=== PATIENT | female | born 1990 | race Caucasian/White ===

== ENCOUNTER 2017-01-28 11:32 | Emergency (ER) | payer BC, OTHER ==
[2017-01-28 12:44] VITALS: BP 116/75
--- NOTE | 2017-01-28 13:02 | UC ---
Throat Pain/Nasal Jossue HPI - HPI Summary HPI Summary: 3 DAYS OF SINUS CONGESTION, NASAL DRAINAGE, NO FEVERS, THE NEIGHBORS BELOW HERE SMOKE AND SHE GOT A NEW CARPET IN HERE APARTMENT-- - History of Current Complaint Chief Complaint: UCRespiratory Stated Complaint: SINUS COMPLAINT Time Seen by Provider: 01/28/17 12:41 Hx Obtained From: Patient Hx Last Menstrual Period: 01/18/17 ?: No Onset/Duration: Gradual Onset, Lasting Days - 3, Still Present Severity: Mild Pain Intensity: 2 Pain Scale Used: 0-10 Numeric Cough: None Associated Signs & Symptoms: Positive: Nasal Discharge - Allergies/Home Medications Allergies/Adverse Reactions: Allergies Allergy/AdvReac Type Severity Reaction Status Date / Time No Known Allergies Allergy Verified 06/17/16 16:18 Home Medications: Home Medications Sertraline* [Zoloft*] 25 mg PO DAILY 01/28/17 [History Confirmed 01/28/17] PMH/Surg Hx/FS Hx/Imm Hx Previously Healthy: Yes Psychological History: Depression - Surgical History Surgical History: None - Family History Known Family History: Positive: Hypertension - Social History Occupation: Employed Full-time Lives: With Family Alcohol Use: Occasionally Alcohol Amount: 2x weekly Substance Use Type: None Smoking Status (MU): Never Smoked Tobacco - Immunization History Most Recent Influenza Vaccination: none Review of Systems Constitutional: Negative Skin: Negative Eyes: Other - ITCHING ENT: Nasal Discharge Respiratory: Negative Cardiovascular: Negative Gastrointestinal: Negative Genitourinary: Negative Motor: Negative Neurovascular: Negative Musculoskeletal: Negative Neurological: Negative Psychological: Negative All Other Systems Reviewed And Are Negative: Yes Physical Exam Triage Information Reviewed: Yes Appearance: Well-Appearing, No Pain Distress, Well-Nourished Vital Signs: Initial Vital Signs Temp 99.0 F 01/28/17 12:41 Pulse 72 01/28/17 12:41 Resp 16 01/28/17 12:41 BP 116/75 01/28/17 12:41 Pulse Ox 98 01/28/17 12:41 Vital Signs Reviewed: Yes Eye Exam: Normal Eyes: Positive: Conjunctiva Clear ENT Exam: Normal ENT: Positive: Normal ENT inspection, Hearing grossly normal, Pharynx normal, Nasal congestion, Nasal drainage, TMs normal. Negative: Tonsillar swelling, Tonsillar exudate, Trismus, Muffled/hoarse voice Dental Exam: Normal Neck exam: Normal Neck: Positive: Supple, Nontender, No Lymphadenopathy Respiratory Exam: Normal Respiratory: Positive: Chest non-tender, Lungs clear, Normal breath sounds, No respiratory distress, No accessory muscle use Cardiovascular Exam: Normal Cardiovascular: Positive: RRR, No Murmur, Pulses Normal, Brisk Capillary Refill Musculoskeletal Exam: Normal Musculoskeletal: Positive: Strength Intact, ROM Intact, No Edema Neurological Exam: Normal Neurological: Positive: Alert, Muscle Tone Normal Psychological Exam: Normal Skin Exam: Normal Throat Pain/Nasal Course/Dx - Course Assessment/Plan: cHANGE TO A 24 HOURS SECOND GENERATION ANTIHISTAMINE, USE FLONASE DAILY, MAY USE ANTIBIODICS IF SX WORSEN IN 7-9 DAYS OR IF FEVERS OCCUR - Differential Dx/Diagnosis Differential Diagnosis/HQI/PQRI: Pharyngitis, Sinusitis, URI Provider Diagnoses: Allergic Rhinnitis Discharge - Discharge Plan Condition: Stable Disposition: HOME Prescriptions: Azithromycin TAB* [Zithromax TAB (Z-KAELA) 250 mg #6 tabs] 2 tab PO .TODAY, THEN 1 DAILY #1 kaela Patient Education Materials: Allergic Rhinitis (ED), Cetirizine (By mouth), Fluticasone (Into the nose) Referrals: [facility] [place] [facility] [Outside] - If Needed
== END 2017-01-28 13:12 | disposition home or self-care (01) ==
LOC: UCEAST 11:32
DX: J30.9 Allergic rhinitis, unspecified (principal)
CPT/HCPCS: 99212; G0463

== ENCOUNTER 2017-04-02 16:26 | Emergency (ER) | payer BC ==
[2017-04-02 16:39] VITALS: BP 127/90
--- NOTE | 2017-04-02 16:50 | UC ---
Skin Complaint HPI - HPI Summary HPI Summary: got 2 bug bites on left arm near axilla, both are swollen red and itching patient has not seen a tick on her-pt is concerned about LYME - History of Current Complaint Chief Complaint: UCSkin Time Seen by Provider: 04/02/17 16:42 Stated Complaint: RASH-LYME? Hx Obtained From: Patient Hx Last Menstrual Period: one month ago ?: No Onset/Duration: Sudden Onset, Lasting Days - 2, Still Present Timing: Constant Location: Discrete Character: Redness, Raised Aggravating: Touch Alleviating: Nothing Associated Signs & Symptoms: Positive: Negative Related History: Insect Bite/Sting - Allergy/Home Medications Allergies/Adverse Reactions: Allergies Allergy/AdvReac Type Severity Reaction Status Date / Time No Known Allergies Allergy Verified 04/02/17 16:40 Home Medications: Home Medications Fexofenadine HCl [Allergy 24-Hr] 04/02/17 [History Confirmed 04/02/17] Review of Systems Constitutional: Negative Skin: Negative, Other - left upper arm near axilla Eyes: Negative ENT: Negative Respiratory: Negative Cardiovascular: Negative Gastrointestinal: Negative Genitourinary: Negative Motor: Negative Neurovascular: Negative Musculoskeletal: Negative Neurological: Negative Psychological: Negative All Other Systems Reviewed And Are Negative: Yes PMH/Surg Hx/FS Hx/Imm Hx Previously Healthy: Yes - Surgical History Surgical History: None - Family History Known Family History: Positive: Hypertension - Social History Occupation: Employed Full-time Lives: With Family Alcohol Use: Occasionally Alcohol Amount: 2x weekly Substance Use Type: None Smoking Status (MU): Never Smoked Tobacco - Immunization History Most Recent Influenza Vaccination: none Physical Exam Triage Information Reviewed: Yes Appearance: Well-Appearing, No Pain Distress, Well-Nourished Vital Signs: Initial Vital Signs Temp 97.9 F 04/02/17 16:37 Pulse 78 04/02/17 16:37 Resp 12 04/02/17 16:37 BP 127/90 04/02/17 16:37 Pulse Ox 99 04/02/17 16:37 Vital Signs Reviewed: Yes Eye Exam: Normal Eyes: Positive: Conjunctiva Clear ENT Exam: Normal ENT: Positive: Normal ENT inspection, Hearing grossly normal. Negative: Nasal congestion, Nasal drainage, Trismus, Muffled/hoarse voice Dental Exam: Normal Neck exam: Normal Neck: Positive: Supple, Nontender Respiratory Exam: Normal Respiratory: Positive: Chest non-tender, No respiratory distress, No accessory muscle use Cardiovascular Exam: Normal Cardiovascular: Positive: RRR, No Murmur, Pulses Normal, Brisk Capillary Refill Musculoskeletal Exam: Normal Musculoskeletal: Positive: Strength Intact, ROM Intact Neurological Exam: Normal Neurological: Positive: Alert, Muscle Tone Normal Psychological Exam: Normal Skin Exam: Other Skin: Positive: Other - 2 bug bites 25 cent raised area with 1 cm of surrounding erythema Course/Dx - Course Course Of Treatment: benadryl, hydrocortisone cream, cool compress, follow with pcp prn - Differential Diagnoses - Skin Complaint Differential Diagnoses: Cellulitis, Local Allergic Reaction, Poison Cee, Poison Toxey, Urticaria - Diagnoses Provider Diagnoses: local reaction to insect bite Discharge - Discharge Plan Condition: Stable Disposition: HOME Patient Education Materials: Diphenhydramine (By mouth), Hydrocortisone (On the skin), Lyme Disease (ED), Insect Bite or Sting (ED), Tick Bite (ED) Referrals: [facility] [place] [facility] [Outside] - If Needed
== END 2017-04-02 16:54 | disposition home or self-care (01) ==
LOC: UCEAST 16:26
DX: S40.862A Insect bite (nonvenomous) of left upper arm, initial encounter (principal); W57.XXXA Bitten or stung by nonvenomous insect and other nonvenomous arthropods, initial encounter; Y93.9 Activity, unspecified; Y92.9 Unspecified place or not applicable
CPT/HCPCS: 99211; G0463

== ENCOUNTER 2017-06-18 07:22 | Emergency (ER) | payer BC ==
[2017-06-18 07:33] VITALS: BP 144/88
--- NOTE | 2017-06-18 08:28 | UC ---
Anshul Castillo Benjamin, scribed for Kathrin Franco DO on 06/18/17 at 0753 . Ear Complaint HPI - HPI Summary HPI Summary: 27yo female c/o bilateral ear discomfort for about a week. Pt states that her ears feel full. Pt tried ear decongestants and cleaning with q tips, but none helped. Pt denies ant cough, fever, sinus pressure, or hearing problems. She states head position leaning to the side helps. Pt denies smoking. No significant FHx, negative for CAD or DM. Hx of vertigo . - History of Current Complaint Chief Complaint: UCEar Stated Complaint: EAR PAIN Time Seen by Provider: 06/18/17 07:35 Hx Obtained From: Patient Hx Last Menstrual Period: 06/11/17 Onset/Duration: Gradual Onset, Lasting Weeks - 1 week Severity Initially: Mild Severity Currently: Mild Pain Intensity: 0 Pain Scale Used: 0-10 Numeric Alleviating Factors: Other (Noted In Comments) - head position leaning to the sides - Allergies/Home Medications Allergies/Adverse Reactions: Allergies Allergy/AdvReac Type Severity Reaction Status Date / Time No Known Allergies Allergy Verified 06/18/17 07:33 PMH/Surg Hx/FS Hx/Imm Hx Neurological History: Other Other Neurological History: vertigo Psychological History: Anxiety - Surgical History Surgical History: None - Family History Known Family History: Positive: Hypertension Negative: Cardiac Disease, Diabetes - Social History Occupation: Employed Full-time - teacher Lives: With Family Alcohol Use: Occasionally Alcohol Amount: 2x weekly Substance Use Type: None Smoking Status (MU): Never Smoked Tobacco - Immunization History Most Recent Influenza Vaccination: none Review of Systems Constitutional: Negative Skin: Negative Eyes: Negative ENT: Other - ear discomfort Respiratory: Negative Cardiovascular: Negative Gastrointestinal: Negative Genitourinary: Negative Motor: Negative Neurovascular: Negative Musculoskeletal: Negative Neurological: Negative Psychological: Negative All Other Systems Reviewed And Are Negative: Yes Physical Exam Triage Information Reviewed: Yes Appearance: Well-Appearing, No Pain Distress, Well-Nourished Vital Signs: Initial Vital Signs Temp 98.3 F 06/18/17 07:29 Pulse 79 06/18/17 07:29 Resp 19 06/18/17 07:29 BP 144/88 06/18/17 07:29 Pulse Ox 100 06/18/17 07:29 Eye Exam: Normal Eyes: Positive: Conjunctiva Clear ENT: Positive: Normal ENT inspection, Hearing grossly normal, Pharynx normal, TMs normal. Negative: Nasal congestion, Nasal drainage, Tonsillar swelling, Tonsillar exudate, Trismus, Muffled/hoarse voice Neck: Positive: Supple, Nontender Respiratory: Positive: Lungs clear, Normal breath sounds, No respiratory distress, No accessory muscle use Cardiovascular: Positive: RRR, No Murmur Musculoskeletal: Positive: Strength Intact, Other: - severe kyphosis, head forward posture, mandibular deviation with ext Neurological: Positive: Alert, Muscle Tone Normal Psychological: Positive: Age Appropriate Behavior Skin Exam: Normal Ear Complaint Course/Dx - Course Course Of Treatment: Reviewed pts medication and allergy lists. High Blood pressure noted. - Differential Dx/Diagnosis Differential Diagnosis/HQI/PQRI: Cerumen Impaction, Otitis Externa, Otitis Media , TMJ Syndrome, URI Provider Diagnoses: serous otitis, tmj dysfunction Discharge - Discharge Plan Condition: Stable Disposition: HOME Patient Education Materials: Serous Otitis Media (ED) Referrals: Viet Seo MD [Medical Doctor] - 2 Weeks (foollow up in 2 week if not improved.) Raquel Bah MD [Primary Care Provider] - If Needed Additional Instructions: YOU WOULD LIKELY BENEFIT FROM OSTEOPATHIC MANIPULATION. WE RECOMMEND THAT YOU FIND AN OSTEOPATHIC PHYSICIAN IN YOUR AREA WHO DOES LYMPHATIC, MYOFACIAL AND VISCERAL WORK The documentation as recorded by the Anshul gordillo Benjamin accurately reflects the service I personally performed and the decisions made by me, Kathrin Franco DO.
== END 2017-06-18 08:16 | disposition home or self-care (01) ==
LOC: UCEAST 07:22
DX: H66.93 Otitis media, unspecified, bilateral (principal); M26.609 Unspecified temporomandibular joint disorder, unspecified side; Z86.69 Personal history of other diseases of the nervous system and sense organs; Z86.59 Personal history of other mental and behavioral disorders
CPT/HCPCS: 99211; G0463

== ENCOUNTER 2017-07-22 14:54 | Emergency (ER) | payer BC ==
[2017-07-22 15:32] VITALS: BP 114/75
--- NOTE | 2017-07-22 16:05 | UC ---
Ear Complaint HPI - HPI Summary HPI Summary: SINCE 06/15/17 EAR ACHE, SEEN ON 06/16/17 DIAGNOSED WITH OM. LATER FOLLOWED UP WITH ENT. SYMPTOMS BRIEFLY RESOLVED. HOWEVER, OVER THE LAST WEEK, HAS HAD WORSENING BILATERAL EAR PAIN AND FULLNESS. - History of Current Complaint Chief Complaint: UCEar Stated Complaint: EAR PAIN Time Seen by Provider: 07/22/17 15:47 Hx Obtained From: Patient Hx Last Menstrual Period: 06/11/17 Onset/Duration: Gradual Onset, Lasting Weeks, Worse Since - LAST WEEK Severity Initially: Mild Severity Currently: Moderate Alleviating Factors: OTC Meds Associated Signs/Symptoms: Positive: URI Symptoms - Allergies/Home Medications Allergies/Adverse Reactions: Allergies Allergy/AdvReac Type Severity Reaction Status Date / Time No Known Allergies Allergy Verified 06/18/17 07:33 PMH/Surg Hx/FS Hx/Imm Hx Previously Healthy: Yes - Surgical History Surgical History: None - Family History Known Family History: Positive: Hypertension Negative: Cardiac Disease, Diabetes - Social History Occupation: Employed Full-time Lives: With Family Alcohol Use: Occasionally Alcohol Amount: 2x weekly Substance Use Type: None Smoking Status (MU): Never Smoked Tobacco - Immunization History Most Recent Influenza Vaccination: none Review of Systems Constitutional: Negative Skin: Negative Eyes: Negative ENT: Ear Ache Respiratory: Negative Cardiovascular: Negative Gastrointestinal: Negative Genitourinary: Negative Motor: Negative Neurovascular: Negative Musculoskeletal: Negative Neurological: Negative Psychological: Negative Is Patient Immunocompromised?: No All Other Systems Reviewed And Are Negative: Yes Physical Exam Triage Information Reviewed: Yes Appearance: Well-Appearing, No Pain Distress, Well-Nourished Vital Signs: Initial Vital Signs Temp 98.0 F 07/22/17 15:29 Pulse 75 07/22/17 15:29 Resp 18 07/22/17 15:29 BP 114/75 07/22/17 15:29 Pulse Ox 100 07/22/17 15:29 Vital Signs Reviewed: Yes Eye Exam: Normal ENT: Positive: TM bulging, TM dull, TM red - R > L Dental Exam: Normal Neck: Positive: Supple, Nontender, Enlarged Nodes @ - BILATERAL ANTERIOR CERVICAL CHAIN Respiratory Exam: Normal Respiratory: Positive: Chest non-tender, Lungs clear, Normal breath sounds, No respiratory distress, No accessory muscle use Cardiovascular Exam: Normal Cardiovascular: Positive: RRR, No Murmur, Pulses Normal Abdominal Exam: Normal Musculoskeletal Exam: Normal Musculoskeletal: Positive: Strength Intact, ROM Intact Neurological Exam: Normal Psychological Exam: Normal Skin Exam: Normal Ear Complaint Course/Dx - Differential Dx/Diagnosis Differential Diagnosis/HQI/PQRI: Otitis Externa, Otitis Media, URI Provider Diagnoses: BILATERAL OTITIS SEROUS Discharge - Discharge Plan Condition: Stable Disposition: HOME Prescriptions: Amoxicillin/Clavulanate TAB* [Augmentin TAB 875*] 875 mg PO BID #20 tab Fluticasone NASAL SPRAY 50MCG* [Flonase NASAL SPRAY 50MCG*] 2 spray BOTH NARES DAILY #1 btl Patient Education Materials: Serous Otitis Media (ED) Referrals: Raquel Bah MD [Primary Care Provider] -
--- OUTSIDE RECORDS SUMMARY | 2017-07-22 16:13 | XMS REPORT ---
:1990 External Reference #:[id number] Author Organization [facility] Address [address] [place] [address] Phone [phone] Care Team Providers Name Role Phone Raquel Bah M.D. Primary Care Physician Unavailable Payers Type Date Identification Numbers Payment Provider Subscriber Commercial Policy Number: [id number] [facility] Kathrin Tamayo Group Number: [id number] [address] [address] PayID: [id number] [place] [address] Problems Description No Information Family History Date Family Member(s) Problem(s) Comments General Allergies General Diabetes General Heart Attack General Heart Disease General Thyroid Disease Social History Type Date Description Comments Occupation Teacher [employer], special ed, reading and science Cigarette Use Never Smoked Cigarettes Cigars Never Smoked Cigars Pipe Never Smoked A Pipe Smokeless Tobacco Never Used Smokeless Tobacco ETOH Use Currently rarely consumes alcohol Smoking Patient has never smoked Allergies, Adverse Reactions, Alerts Date Description Reaction Status Severity Comments 06/10/2008 NKDA active Medications Medication Date Status Form Strength Qnty SIG Indications Ordering Provider Sertraline HCL Active Tablets 100mg Take One Unknown 000 Tablet By Mouth Every Day Microgestin Active Tablets 1-20mg-mcg Take One Unknown 1/20 000 Tablet By Mouth Every Day as Directed Nac Active Unknown 000 None Hx Unknown 000 - 017 Vital Signs Date Vital Result Comment 06/26/2017 BP Systolic 126 mmHg BP Diastolic 96 mmHg Heart Rate 75 /min Respiratory Rate 17 /min Weight 169.00 lb Weight in kg's 76.658 Height 58 inches 4'10" Height in cm's 147.3 cm BMI (Body Mass Index) 35.3 kg/m2 06/16/2008 BP Systolic 107 mmHg BP Diastolic 58 mmHg Heart Rate 64 /min Respiratory Rate 16 /min Results Description No Information Procedures Date CPT Code Description Status 06/26/2017 89714 Tympanometry Completed 06/16/2008 72733 Videostroboscopy Completed Encounters Type Date Location Provider CPT E/M Dx Office Visit 06/26/2017 9:00a [place],After 08/20/07 Igor Marx 39495 H91.93 Tito Crump Office Visit 06/16/2008 8:30a [place],After 08/20/07 Igor Marx 59611 784.49 Tito Crump 478.5 Plan of Care 06/26/2017 - Igor Crump M.D.H91.93 Unspecified hearing loss, bilateralComments:The patient has felt her ears are plugged up for a couple of weeks. She went to [facility] and was told there is inflammation and possibly fluid. Today her ears are normal without effusion. Her tympanometry is normal today. I don't know why her ears feel so plugged up. It sounds like some eustachian tube obstruction but there is no evidence of that. She will return later for an audiogram. She returnedlater in he day for the audiogram. Her hearing is normal and the tympanometry is type A. The same as what I got. Assuming she had an effusion as she was told, this could be a resolving otitis media. It should continue to get better with time. She can take decongestants and use an intranasal corticosteroid. I will see her again if she does not feel better in 3 to 4 weeks.
== END 2017-07-22 16:05 | disposition home or self-care (01) ==
LOC: UCEAST 14:54
DX: H65.03 Acute serous otitis media, bilateral (principal)
CPT/HCPCS: 99212; G0463

== ENCOUNTER 2017-08-29 19:10 | Emergency (ER) | payer BC ==
--- OUTSIDE RECORDS SUMMARY | 2017-08-29 19:17 | XMS REPORT ---
:1990 External Reference #:[id number] Author Organization [facility] Address [address] [place] [address] Phone [phone] Care Team Providers Name Role Phone Raquel Bah M.D. Primary Care Physician Unavailable Payers Type Date Identification Numbers Payment Provider Subscriber Commercial Policy Number: [id number] [facility] Kathrin Tamayo Group Number: [id number] [address] [address] PayID: [id number] [place] [address] Problems Description No Information Family History Date [...] Form Strength Qnty SIG Indications Ordering Provider Prednisone Active Tablets 10mg 40tabs 40 mg for R51 Igor N. 018 5 days, Strominger then 30 mg , M.D. for 3 days, then 20 mg for 3 days, then 10 mg for 3 days, then 5 mg for 3 days with food Sertraline HCL Active Tablets 100mg Take One Unknown 000 Tablet By Mouth Every Day Microgestin Active Tablets 1-20mg-mcg Take One Unknown 1/20 000 Tablet By Mouth Every Day as Directed None Hx Unknown 000 - 017 Nac 00/00/0 Hx Unknown 000 - 018 Vital Signs Date Vital Result Comment 08/21/2017 BP Systolic 142 mmHg BP Diastolic 93 mmHg Heart Rate 74 /min Respiratory Rate 18 /min Weight 169.00 lb Weight in kg's 76.658 Height 58 inches 4'10" Height in cm's 147.3 cm BMI (Body Mass Index) 35.3 kg/m2 06/26/2017 BP Systolic 126 mmHg BP Diastolic [...] Procedures Date CPT Code Description Status 06/26/2017 55988 Tympanometry Completed 06/16/2008 59976 Videostroboscopy Completed Encounters Type Date Location Provider CPT E/M Dx Office Visit 08/21/2017 8:45a [place],After 08/20/07 Igor Marx 76216 R51 Tito Crump Office Visit 06/26/2017 9:00a [place],After 08/20/07 Igor Marx 21447 H91.93 Tito Crump Office Visit 06/16/2008 8:30a [place],After 08/20/07 Igor Marx 88600 784.49 Tito Crump 478.5 Plan of Care 08/21/2017 - Igor Crump M.D.R51 HeadacheNew Medication:Prednisone 10 mgComments:The patient continues with the sensation that her ears are plugging and she is getting severe headaches every day for the most part. She has been treated with Augmentin, antihistamines, Sudafed, Flonase and it has not helped. Her ENT examination has been normal and her audiogram and tympanometry were normal. I suspect this is not sinusitis and rather a headache syndrome, perhaps cluster headacheor intractable migraine. She is wondering if it is the Sertraline. She has been trying to titrate that dose.She has had a similar problem a number of years ago and steroid burst helped,. She understands the common side effects and I warned her about idiosyncratic hip necrosis. It is worth a try to see if this helps. If not the plan is a sinus CT scan.
[2017-08-29 19:19] VITALS: BP 126/81
--- NOTE | 2017-08-29 20:14 | UC ---
Ear Complaint HPI - HPI Summary HPI Summary: PT HAS HAD LEFT EAR PAIN FOR MONTHS. HAS SEEN ENT TWICE (DR. GARCIA). MOST RECENTLY ABOUT A WEEK AGO. PT REPORTS EXAM WAS NORMAL AND THAT RX FOR PO AND NASAL STEROIDS NOT HELPFUL. IS INTERESTED IN A SECOND OPINION. SHE DENIES ANY HEARING LOSS OR DRAINAGE FROM THE EAR. STATES IT FEELS LIKE IT NEEDS TO POP. HAS TRANSIENT RELIEF WHEN SHE TUGS ON HER PINNA OR USES THE "EUSTACHI" DEVICE. IS WANTING A CT SCAN. - History of Current Complaint Chief Complaint: UCEar Stated Complaint: EAR ACHE Time Seen by Provider: 08/29/17 19:32 Hx Obtained From: Patient Hx Last Menstrual Period: 08/29/17 Onset/Duration: Gradual Onset, Still Present Severity Initially: Moderate Severity Currently: Moderate Pain Intensity: 7 Pain Scale Used: 0-10 Numeric Aggravating Factors: Nothing Associated Signs/Symptoms: Negative: Discharge, Hearing Loss, Foreign Body Sensation, Trauma to Ear, Swelling @, URI Symptoms - Allergies/Home Medications Allergies/Adverse Reactions: Allergies Allergy/AdvReac Type Severity Reaction Status Date / Time No Known Allergies Allergy Verified 08/29/17 19:18 Home Medications: Home Medications Methylprednisolone 1 tab PO DAILY 08/29/17 [History Confirmed 08/29/17] PMH/Surg Hx/FS Hx/Imm Hx Psychological History: Anxiety - Surgical History Surgical History: None - Family History Known Family History: Positive: Hypertension Negative: Cardiac Disease, Diabetes - Social History Alcohol Use: Weekly Alcohol Amount: 2x weekly Substance Use Type: None Smoking Status (MU): Never Smoked Tobacco - Immunization History Most Recent Influenza Vaccination: none Review of Systems Constitutional: Negative ENT: Ear Ache Respiratory: Negative Cardiovascular: Negative Gastrointestinal: Negative Neurological: Negative All Other Systems Reviewed And Are Negative: Yes Physical Exam Triage Information Reviewed: Yes Appearance: Well-Appearing, No Pain Distress, Well-Nourished Vital Signs: Initial Vital Signs Temp 98.8 F 08/29/17 19:15 Pulse 72 08/29/17 19:15 Resp 16 08/29/17 19:15 BP 126/81 08/29/17 19:15 Pulse Ox 100 08/29/17 19:15 Vital Signs Reviewed: Yes Eyes: Positive: Conjunctiva Clear ENT: Positive: Hearing grossly normal, Pharynx normal, TMs normal Neck: Positive: Supple, Nontender, No Lymphadenopathy Respiratory: Positive: No respiratory distress, No accessory muscle use Cardiovascular: Positive: Pulses Normal Abdomen Description: Positive: Soft Musculoskeletal: Positive: No Edema Neurological: Positive: Alert Psychological: Positive: Age Appropriate Behavior Skin: Negative: rashes Diagnostics - Radiology CT HEAD W/O CONTRAST Xray Interpretation: No Acute Changes Radiology Interpretation Completed By: Radiologist Ear Complaint Course/Dx - Course Course Of Treatment: PT REQUESTING REFERRAL TO A DIFFERENT ENT FOR A SECOND OPINION. WILL GIVE CONTACT INFORMATION FOR DR. MCLAIN. - Differential Dx/Diagnosis Provider Diagnoses: LEFT EAR PAIN, NOS Discharge - Discharge Plan Condition: Stable Disposition: HOME Patient Education Materials: Earache (ED) Referrals: Raquel Bah MD [Primary Care Provider] - If Needed Additional Instructions: HEAD CT TODAY UNREMARKABLE EAR PAIN, NON-SPECIFIC There are many causes of ear pain in adults. Pain that's felt in the ear can actually be coming from somewhere nearby. This is called "referred pain." Problems in the teeth, throat, or jaw joint (TMJ) often cause ear pain. Sometimes the physical exam or medical history suggests a treatable cause. If not, we may wait for the pain to go away. New symptoms may offer a clue to the cause of the pain. Report any changes to your care provider. These are some conditions that can cause ear pain, but may not be obvious from physical examination: Eardrum injury Pressure changes (barotrauma) due to swimming or shock waves Mild trauma such as Q-tip injury or finger-picking the outer ear Mild outer ear infection (swimmer's ear) Low-grade or chronic middle ear infection Mastoiditis (infection in the bone behind the ear) TMJ syndrome or arthritis of the jaw Pressure from hard earwax Tooth infection Infected tonsil Sinus infection Nerve disease such as Vines's Palsy Follow your care provider's treatment recommendations. Let the ear rest. Don't insert cotton swabs, dig at the ear with your finger, or force your ears to "pop." If you're not improving after a few days, or if new symptoms arise, see the doctor. Watch for: Decreased hearing Spreading pain or headache Drainage or bleeding from the ear Fever Weakness of the face muscles Other new symptoms ENT IN [facility] OFFICE HOURS ON TUESDAYS) DR. MICHAEL MCLAIN Address: [address] [place] [phone] [facility] (Tuesdays) Phone [place]: Phone [place]:
--- NOTE | 2017-08-29 20:21 | RAD ---
INDICATION: Chronic ear pain COMPARISON: None TECHNIQUE: Noncontrast axial source images were acquired from the skull base to the vertex. FINDINGS: Ventricles/sulci: The ventricles and cisterns are normal in size and configuration for age. Brain parenchyma: There is no focal parenchymal finding, evidence of intracranial mass, or intracranial mass effect. Intracranial hemorrhage:None. Extra-axial spaces: There are no abnormal extra axial fluid collections or evidence of extra-axial mass. Calvarium: There is no calvarial fracture or other calvarial abnormality. Scalp: There is no evidence of scalp or extracalvarial soft tissue abnormality. Paranasal sinuses/mastoid: The paranasal sinuses and mastoid air cells are clear. Other: None. IMPRESSION: NEGATIVE EXAMINATION
== END 2017-08-29 20:45 | disposition home or self-care (01) ==
LOC: UCEAST 19:10
DX: H92.02 Otalgia, left ear (principal); F41.9 Anxiety disorder, unspecified
CPT/HCPCS: 70450; 99211; G0463

== ENCOUNTER → 2018-06-15 14:02 | Emergency (ER) | payer BC ==
[2018-06-15 14:09] VITALS: BP 145/93
--- NOTE | 2018-06-15 16:18 | ED ---
Throat Pain/Nasal Congestion - HPI Summary HPI Summary: Patient presents with left ear pain since inserting swimmers eardrops that are isopropol alcohol based into her left ear after shower today. She reports she got some water into her ear canal during shower despite trying ear plugs and was worried water was going to go into her inner ear which she feels it probably did as she had fullness and discomfort. Unfortunately, she had bilateral myringotomy last September and so by inserting these swimmer's ear drops, they went directly into her inner ear, causing instant pain. She reports her pain has improved since she's been here in the ED. She continues to have a sensation of fullness in her ear with muffled hearing but denies summer pain, balance issues, drainage, hearing loss. She has a follow-up with Dr. Fulton on June 27 to discuss if she will keep her tubes in place versus removing them due to repeated water issues. No other concerns today. - History of Current Complaint Chief Complaint: EDEarPain Time Seen by Provider: 06/15/18 14:47 Hx Obtained From: Patient, Family/Detective Supervisor - partner - Allergies/Home Medications Allergies/Adverse Reactions: Allergies Allergy/AdvReac Type Severity Reaction Status Date / Time No Known Allergies Allergy Verified 06/15/18 14:49 Home Medications: Home Medications Adderall Xr 15 mg Capsule 15 powder PO DAILY 06/15/18 [History Confirmed ] Prozac 40 mg PO DAILY 06/15/18 [History Confirmed 06/15/18] Vyvanse 10 mg PO DAILY 06/15/18 [History Confirmed 06/15/18] PMH/Surg Hx/FS Hx/Imm Hx Previously Healthy: Yes Endocrine/Hematology History: Denies: Hx Diabetes, Hx Thyroid Disease Cardiovascular History: Denies: Hx Hypertension Respiratory History: Denies: Hx Asthma, Hx Chronic Obstructive Pulmonary Disease (COPD) GI History: Denies: Hx Ulcer Musculoskeletal History: Denies: Hx Scoliosis EENT History: Reports: Other - Lt eustachian tube d/o - B/L myringotomy w/ Dr. Fulton 09/2017 Neurological History: Denies: Hx Headaches Infectious Disease History: No Infectious Disease History: Denies: Hx Clostridium Difficile, Hx Hepatitis, Hx Human Immunodeficiency Virus (HIV), Hx of Known/Suspected MRSA, Hx Shingles, Hx Tuberculosis, Hx Known/ Suspected VRE, Hx Known/Suspected VRSA, History Other Infectious Disease, Traveled Outside the [place] in Last 30 Days - Family History Known Family History: Positive: Hypertension Negative: Cardiac Disease, Diabetes - Social History Occupation: Employed Full-time - teacher Lives: With Family Alcohol Use: Weekly Alcohol Amount: 2x weekly Hx Substance Use: No Substance Use Type: Reports: None Hx Tobacco Use: No Smoking Status (MU): Never Smoked Tobacco Review of Systems Constitutional: Negative Negative: Fever, Chills, Fatigue Positive: Ear Ache. Negative: Sore Throat, Nasal Discharge Cardiovascular: Negative Respiratory: Negative Gastrointestinal: Negative Negative: Vomiting, Nausea Positive: no symptoms reported Musculoskeletal: Negative Skin: Negative Neurological: Negative - no dizziness or balance issues Negative: Headache Psychological: Normal All Other Systems Reviewed And Are Negative: Yes Physical Exam Triage Information Reviewed: Yes Vital Signs On Initial Exam: Initial Vitals Temp Pulse Resp BP Pulse Ox 97.4 F 87 16 145/93 99 06/15/18 14:06 06/15/18 14:06 06/15/18 14:06 06/15/18 14:06 06/15/18 14:06 Vital Signs Reviewed: Yes Appearance: Positive: Well-Appearing, No Pain Distress, Well-Nourished Skin: Positive: Warm, Skin Color Reflects Adequate Perfusion, Dry - no erythema over affected area Head/Face: Positive: Normal Head/Face Inspection Eyes: Positive: Normal, EOMI, Conjunctiva Clear. Negative: Conjunctiva Inflammed, Discharge ENT: Positive: Hearing grossly normal, Pharynx normal. Negative: Nasal congestion, Nasal drainage, TMs normal - Rt EAC w/o erythema, edema, or d/c - soft wax at inferior aspect but not occluding EAC/TM - light blue tube appears to be in place in TM w/o concern for injury or displacement; Lt EAC is w/o erythema but there is also a soft wax at the inferior aspect, partially obstructing her pale blue tube that appears to be placed w/o injury or displacement in the Lt TM - posterior aspect of the TM is w/ mild erythema although appears to be superficial capillary injection - no hyperemia or d/c - scant amount of water does appear to be present at dependent region of the EAC - no bleeding Neck: Positive: Supple, Nontender, No Lymphadenopathy Respiratory/Lung Sounds: Positive: Breath Sounds Present Cardiovascular: Positive: Normal Musculoskeletal: Positive: Normal, Strength/ROM Intact Neurological: Positive: Normal, Sensory/Motor Intact, Alert, Oriented to Person Place, Time, CN Intact II-III Psychiatric: Positive: Normal Procedures - Procedure Summary Procedure Summary: Using a currette, soft wax was displaced to free the EAC/TM and tube from obstruction - pt could not tolerate complete extraction but she has relief of pressure and can hear better. No injury/abrasion or bleeding induced w/ this procedure. Diagnostics - Vital Signs Vital Signs Temp Pulse Resp BP Pulse Ox 06/15/18 14:06 97.4 F 87 16 145/93 99 - Laboratory Lab Statement: Any lab studies that have been ordered have been reviewed, and results considered in the medical decision making process. Re-Evaluation - Re-Evaluation First Eval Change: Improved EENT Course/Dx - Course Course Of Treatment: Pt presents w/ pain s/p chemical injury to the Lt inner ear via Swimmer's Ear drops (isopropyl alcohol based). Her pain has subsided since here and no summer hearing loss. She had some muffled hearing changes w/ pressure which resolved w/ cerumen displacement. Advised avoiding further placement of anything into her ears except cotton to protect and aid in absoorption of water. SHe will f/u w/ Dr. Fulton as scheduled or sooner if sx return. Advised to retunr to ED if danger s/sx present. - Diagnoses Provider Diagnoses: Other specified injury of left middle and inner ear, initial encounter Discharge - Sign-Out/Discharge Documenting (check all that apply): Patient Departure - Discharge Plan Condition: Stable Disposition: HOME Patient Education Materials: Earache (ED) Referrals: Raúl Fulton MD [Medical Doctor] - Additional Instructions: The cause of your left inner ear pain earlier today was most likely caused by direct administration of swimmer's ears drops which are alcohol based directly into your inner ear. Refrain from using these or any other drops in the future unless advised by a physician or medical provider. In the meantime, you may keep a cotton ball in your ear to protect against wind or temperature trauma. Refrain from Q-tips, etc. in an effort to reduce risk of injury. Follow-up with Dr. Fulton this week. Call Sunday to reschedule your appointment sooner if you' re still having symptoms. Otherwise may keep your appointment for November 8. *If you developed worsening of symptoms, pain, swelling, dizziness, hearing loss , fevers, chills, headache, return to the emergency department. - Billing Disposition and Condition Condition: STABLE Disposition: Home
== END | disposition home or self-care (01) ==
LOC: ED 14:02
DX: S09.302A Unspecified injury of left middle and inner ear, initial encounter (principal); X58.XXXA Exposure to other specified factors, initial encounter; Y93.E1 Activity, personal bathing and showering; Y92.9 Unspecified place or not applicable
CPT/HCPCS: 99282

== ENCOUNTER 2019-01-01 09:47 | Emergency (ER) | payer BC, OTHER ==
[2019-01-01 10:13] VITALS: BP 149/94
--- NOTE | 2019-01-01 10:36 | UC ---
Lower Extremity/Ankle HPI - HPI Summary HPI Summary: 28 y/o female presents to the urgent care c/o lateral side of left mid foot pain w/ discrete superficial abrasion s/p injury w/ falling scissors at her job yesterday around 1520pm. 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 Pt is not UTD w/ her Tetanus vaccine. Pain is 1/10 w/ walking. Pt denies fever, calf pain, SOB, chest pain, abdominal pain, N/V/D. - History of Current Complaint Chief Complaint: UCLowerExtremity Stated Complaint: LT FOOT INJURY Time Seen by Provider: 01/01/19 10:28 Hx Obtained From: Patient Hx Last Menstrual Period: 12/09/18 ?: No Onset/Duration: Sudden Onset, Lasting Days - 1 day, Still Present Severity Initially: Moderate Severity Currently: Mild Pain Intensity: 1 Pain Scale Used: 0-10 Numeric Aggravating Factor(s): Ambulation Alleviating Factor(s): Rest, Elevation Able to Bear Weight: Yes - Risk Factors Gout Risk Factors: Negative DVT Risk Factors: Negative Septic Arthritis Risk Factor: Negative - Allergies/Home Medications Allergies/Adverse Reactions: Allergies Allergy/AdvReac Type Severity Reaction Status Date / Time No Known Allergies Allergy Verified 01/01/19 10:12 Home Medications: Home Medications Dextroamphetamine/Amphetamine [Adderall Xr 20 mg Capsule] 20 mg PO 01/01/19 [ History] Norethindrone AC-Eth Estradiol [Hannah 21 1-20 Tablet] 1 tab PO 01/01/19 [History ] PMH/Surg Hx/FS Hx/Imm Hx Previously Healthy: Yes - Pt denies PMHX - Surgical History Surgical History: None - Family History Known Family History: Positive: Hypertension Negative: Cardiac Disease, Diabetes - Social History Occupation: Employed Full-time Lives: With Family Alcohol Use: Weekly Alcohol Amount: 2x weekly Substance Use Type: None Smoking Status (MU): Never Smoked Tobacco - Immunization History Most Recent Influenza Vaccination: none Hx Tetanus, Diphtheria Vaccination: No - unsure when she had last vaccine Review of Systems All Other Systems Reviewed And Are Negative: Yes Constitutional: Positive: Negative Skin: Positive: Other - superficial abrasion on the lateral side of left foot s/ p injury w/ falling pair of scissors Eyes: Positive: Negative ENT: Positive: Negative Respiratory: Positive: Negative Cardiovascular: Positive: Negative Gastrointestinal: Positive: Negative Genitourinary: Positive: Negative Motor: Positive: Negative Neurovascular: Positive: Negative Musculoskeletal: Positive: Other: - left foot mild pain Neurological: Positive: Negative Psychological: Positive: Negative Is Patient Immunocompromised?: No Physical Exam - Summary Physical Exam Summary: Vital Signs Reviewed: Yes General: well developed, well nourished female sitting in the examining table w/ o any apparent distress Eye Exam: Normal Eyes: Positive: Conjunctiva Clear - PERRLA, EOMI, fundi grossly normal ENT: Positive: Normal ENT inspection, Hearing grossly normal, Pharynx normal, TMs normal Neck: Positive: Supple, Nontender, No Lymphadenopathy Respiratory: Positive: Chest non-tender, Lungs clear, Normal breath sounds, No respiratory distress Cardiovascular: Positive: RRR, No Murmur, Pulses Normal, Brisk Capillary Refill Abdomen Description: Positive: Nontender, No Organomegaly, Soft. Negative: CVA Tenderness (R), CVA Tenderness (L) Bowel Sounds: Positive: Present Musculoskeletal: Positive: Strength Intact, ROM Intact, No Edema Neurological: Positive: Alert, Muscle Tone Normal Psychological Exam: Normal Skin: Positive:Lateral side of left mid foot with discrete linear superficial abrasion about 0.2cm in size, non bleeding, no erythema, no foreign body observed. mild tenderness to palpation, no ecchymosis. FROM of LF foot, sensation intact, capillary refill brisk, and pulses WNL. Triage Information Reviewed: Yes Vital Signs: Initial Vital Signs Temp 98.9 F 01/01/19 10:09 Pulse 83 01/01/19 10:09 Resp 18 01/01/19 10:09 BP 149/94 01/01/19 10:09 Pulse Ox 100 01/01/19 10:09 Lower Extremity Course/Dx - Course Course Of Treatment: 28 y/o female presents to the urgent care c/o lateral side of left mid foot pain w/ discrete superficial abrasion s/p injury w/ falling scissors at her job yesterday around 1520pm. 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 Pt is not UTD w/ her Tetanus vaccine. Pain is 1/10 w/ walking. Pt denies fever, calf pain, SOB, chest pain, abdominal pain, N/V/D. Hx obtained. Pt w/ a 0.2 cm linear abrasion w /o any bleeding or erythema observed, FROM of the left foot on examination. Wound cleaneed w/ iodine swabs 2X and bacitrain oint applied over and wound covered w/ sterile dressing. FROM of left foot. Tdap ordered and applied by nurse. Pt advised if any signs of infection develop to immediately return to the urgent care of PCP for further management and treatment. Pt's BP is elevated today advised to decrease salt in diet, monitor BP and f/u with PCP for further management. Pt understood and agreed and left the clinic ambulating A&Ox3. - Differential Dx/Diagnosis Differential Diagnosis/HQI/PQRI: Contusion, Fracture (Closed), Infection, Puncture Wound, Sprain, Strain, Tendonitis, Other - abrassion Provider Diagnosis: Abrasion of left foot, Injury of left foot, Elevated BP without diagnosis of hypertension Discharge - Sign-Out/Discharge Documenting (check all that apply): Patient Departure All imaging exams completed and their final reports reviewed: No Studies - Discharge Plan Condition: Stable Disposition: HOME Patient Education Materials: Abrasion (ED) Forms: *Work Release Referrals: Raquel Bah MD [Primary Care Provider] - Additional Instructions: 1-Please apply topical Bacitracin oint antibiotic over the wound. Keep wound clean and dry 2-Take Ibuprofen or Tylenol PO q6-8hrs prn for pain or swelling.Keep your foot elevated. avoid standing for long periods of time 4- If you develop fever or redness around abrasion please return to the Urgent care or your PCP for further management 5- Your BP is elevated today. please decrease salt in your diet, monitor BP and if it continues to be elevated please f/u with your PCP for further management. - Billing Disposition and Condition Condition: STABLE Disposition: Home
[2019-01-01] MEDS ORDERED: Tetan/Diph/Pertus SYR(Tdap)* 0.5 ML SYR(BOOSTRIX) use SYR IM ONE (10:38)
== END 2019-01-01 10:55 | disposition home or self-care (01) ==
LOC: UCEAST 09:47
DX: S99.921A Unspecified injury of right foot, initial encounter (principal); S90.812A Abrasion, left foot, initial encounter; R03.0 Elevated blood-pressure reading, without diagnosis of hypertension; W20.8XXA Other cause of strike by thrown, projected or falling object, initial encounter; Y92.9 Unspecified place or not applicable; Y99.0 Civilian activity done for income or pay
CPT/HCPCS: 90471; 90715; 99211; G0463

== ENCOUNTER 2019-02-24 17:27 | Emergency (ER) | payer BC, OTHER ==
--- OUTSIDE RECORDS SUMMARY | 2019-02-24 17:34 | XMS REPORT | Continuity of Care Document ---
:1990 External Reference #:[id number] Author Name Raquel Bah M.D. 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 Onset: 02/13/2019 Family History Date Family Member(s) Observation Comments Father due to Asthma () - age 54 Father due to ulcerative colitis () Mother Non Contributory Siblings 1 Social History Type Date Description Comments Sex Unknown Education [employer] and [facility] ED from [facility] [facility] [employer] in Special Ed IC from [employer]. 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 Tobacco Use Start: Unknown Never Smoked Cigarettes Smoking Status Reviewed: 03/26/17 Never Smoked Cigarettes ETOH Use Occasional 3 drinks a week. Allergies, Adverse Reactions, Alerts Description No Known Drug Allergies Medications Active Medications SIG Qnty Indications Ordering Date Provider Fluoxetine HCL 1 by mouth every 60caps F41.9 Caryl CRadha 01/22/2019 20mg day in combination Bereket, ZACHARY Capsules with 40mg capsule for total dose of 60mg Gabapentin one by mouth three 45caps F41.9 Caryl C. 01/22/2019 300mg times daily as ZACHARY [place] Capsules needed for anxiety Ketoconazole lather shampoo, 120ml R21 Jenna 05/01/2018 2% apply to affected [facility] Shampoo areas scalp , allow to sit 5 minutes, then rinse off; perform daily Nac 1 po qd Unknown 500mg Capsules Zyrtec Allergy 1 by mouth every Unknown 10mg day, please fill Tablets with generic Microgestin 1/20 take one tablet by 63tabs Caryl Deluna mouth every day as ZACHARY [place] 1-20mg-mcg Tablets directed Fluoxetine HCL 1 by mouth every 30caps Raquel L. 40mg day Tito Bah Capsules Adderall XR 1 by mouth every 30caps Raquel L. 20mg Caps day Tito Bah ER 24HR History Medications Propranolol HCL take 1 tablet 60tabs F41.9 Caryl Deluna 01/22/2019 - 20mg Tablets by mouth three ZACHARY [place] 02/13/2019 times a day as needed for anxiety Vyvanse take one by 30caps eJnna 05/01/2018 - 10mg Capsules mouth daily [facility] 01/22/2019 Macrodantin 1 by mouth 10caps Jenna 06/06/2017 - 100mg Capsules twice a day x 5 [facility] 11/01/2017 days Aviane 1 po qd 1month Unknown - 0.1-20mg-mcg Tablets 06/29/2016 Microgestin 1/20 1 daily as Unknown - 1-20mg-mcg directed 03/25/2017 Tablets Sertraline HCL 1.5 by mouth Unknown - 100mg Tablets every day 05/01/2018 Oxycodone HCL 1 by mouth Unknown - 5mg Tablets every 4 hours 06/01/2017 as needed Adderall tid Unknown - 7.5mg Tablets 05/01/2018 Dextroamphetamine Unknown - Sulfate ER 05/01/2018 Vital Signs Date Vital Result Comment 02/13/2019 6:14pm BP Systolic 120 mmHg BP Diastolic 66 mmHg Heart Rate 84 /min Body Temperature 97.8 F Respiratory Rate 17 /min Height 68 inches 5'8" per pt/refused Weight 175.00 lb BMI (Body Mass Index) 26.6 kg/m2 01/22/2019 10:38am BP Systolic 138 mmHg BP Diastolic 70 mmHg Heart Rate 80 /min Body Temperature 98.6 F Respiratory Rate 20 /min Height 68 inches 5'8" per pt/refused Weight 175.00 lb per pt/refused BMI (Body Mass Index) 26.6 kg/m2 05/01/2018 8:09am BP Systolic 120 mmHg BP Diastolic 72 mmHg Heart Rate 70 /min Body Temperature 97.9 F Respiratory Rate 18 /min Weight 170.00 lb 11/01/2017 1:38pm BP Systolic 110 mmHg BP Diastolic 80 mmHg Heart Rate 68 /min Body Temperature 98.5 F Respiratory Rate 18 /min Weight 167.00 lb 06/01/2017 4:33pm BP Systolic 124 mmHg BP Diastolic 82 mmHg Heart Rate 68 /min Body Temperature 97.8 F Respiratory Rate 16 /min Height 67 inches 5'7" Weight 167.00 lb BMI (Body Mass Index) 26.2 kg/m2 03/26/2017 1:55pm BP Systolic 118 mmHg BP Diastolic 82 mmHg Heart Rate 74 /min Body Temperature 98.5 F Height 67 inches 5'7" Weight 167.38 lb BMI (Body Mass Index) 26.2 kg/m2 06/29/2016 11:11am BP Systolic 112 mmHg BP Diastolic 64 mmHg Heart Rate 64 /min Body Temperature 98.1 F Respiratory Rate 16 /min Height 67 inches 5'7" Weight 162.12 lb BMI (Body Mass Index) 25.4 kg/m2 08/22/2012 3:49pm BP Systolic 110 mmHg BP Diastolic 70 mmHg Heart Rate 72 /min Body Temperature 98.5 F Height 67 inches 5'7" Weight 139.00 lb BMI (Body Mass Index) 21.8 kg/m2 Results Test Date Facility Test Result H/L Range Note Ua - Non Micro (Fma) 11/01/2017 [facility] Appearance clear (607)- - Color yellow Glucose, Urine (Fma/CMC/CTX) neg Bilirubin neg Ketones neg SP Grav <1.005 Blood neg PH 6.5 Protein neg Urobil 0.2 Nitrite neg Leukocytes (Fma/CMC/Centrex) neg Ua - Micro (Fma) 06/15/2017 [facility] Appearance CLEAR (607)- - Color YELLOW Glucose, Urine (Fma/CMC/CTX) NEG Bilirubin NEG Ketones NEG SP Grav <=1.005 Blood SMALL # PH 6.5 Protein NEG Urobil 0.2 Nitrite NEG Leukocytes (Fma/CMC/Centrex) TRACE # Hyaline - /Lpf Granular - /Lpf WBC (a,Centrex) 3-5 # RBC 10-12 # Mucus - /Lpf Epith OCC /Lpf # Bacteria 1+ /Hpf # Amorphous - /Lpf Crystals, Fluid (Fma/CMC/CTX) - Laboratory test 06/15/2017 [facility] Urine Culture And SEE RESULT 1 finding Sensitivities BELOW Comprehensive 06/01/2017 Slade Husesin([facility]) Sodium 140 mEq/L 134-14 Metabolic Prof 9 Potassium 4.3 mEq/L 3.6-5.5 Chloride 104 mEq/L 94-112 Carbon Dioxide 25 mEq/L 21-32 Glucose 101 mg/dL 70-105 BUN 11 mg/dL 6-26 Creatinine 0.6 mg/dL 0.6-1.4 BUN/Creat Ratio 18.3 CALC 8.0-36.0 Calcium 9.8 mg/dL 8.6-10.2 Total Protein 7.5 g/dL 6.4-8.3 Albumin 4.7 g/dL 3.8-5.5 Globulin 2.8 g/dL 2.0-4.8 A/G Ratio 1.7 CALC 0.6-2.3 Alk. Phosphatase 14 U/L Low 30-110 2 Alt (SGPT) 21 U/L 7-35 Ast (Sgot) 19 U/L 5-34 Total Bilirubin 0.3 mg/dL 0.2-1.3 GFR Non- >60 ml/min/1.73m^ >=60 GFR >60 ml/min/1.73m^ >=60 Laboratory test finding 06/01/2017 Slade Hussein([facility]) TSH 2.23 mIU/L 0.50-6.00 Free T4 0.75 ng/dL 0.75-1.54 Ua - Micro (a) 06/01/2017 [facility] Appearance clear (607)- - Color yellow Glucose, Urine (a/CMC/CTX) - Bilirubin - Ketones - SP Grav 1.010 Blood large # menses PH 7.0 Protein - Urobil 0.2 Nitrite - Leukocytes (Fma/CMC/Centrex) small # Hyaline - /Lpf Granular - /Lpf WBC (Fma,Centrex) 3-5 RBC 0-1 Mucus (Fma/CBC/Centrex) - /Lpf Epith mod /Lpf Bacteria 1+ /Hpf Amorphous (Fma/CMC/Centrex) - /Lpf Crystals, Fluid (Fma/CMC/CTX) - CBC Electronic ([facility]) 06/01/2017 [facility] WBC 11.8 High 3.6-9.6 (607)- - RBC 4.37 3.90-5.70 Hemoglobin (Fma/CMC/CTX) 14.2 g/dL 12.1 - 17.2 Hematocrit (Fma/CMC/CTX) 41.4 % 36.1 - 50.3 Platelets 215 10^3/ul 150-400 Lymph% 29 % 17.0-48.0 Mixed% 4.3 Neutrophils % 66.7 Mean Corpuscular Vol 95 82.2-97.4 Mean Corpuscular Hemoglobin 32.5 27.6-33.3 Mean Corpuscular Hemo Concen 34.3 32.0-36.0 RDW 13.7 11.6-13.7 Mean Platelet Volume 8.3 5.5-11.0 GC/Chlamydia Amplified 02/03/2015 [facility] Chlamydia trachomatis Negative N Negative 3 Rna Rna Neisseria gonorrhoeae (GC) Rna Negative N Negative 4 Laboratory test 02/03/2015 [facility] Urine Culture And SEE RESULT BELOW 5 finding Sensitivities Affirm Vaginal Dna 11/03/2012 [facility] Affirm Vaginal Dna Probe (SEE NOTE) 6 Probe GC/Chlamydia Amplified 11/03/2012 [facility] GC/Chlamydia Rna (SEE NOTE) 7 Rna 1 SEE RESULT BELOW Name: AZAM TAMAYO : [address]: Jenna Kolb [employer] Acct: [id number] Unit: [id number] AGE: 27 Location: [facility] Re06/15/17 SEX: F Status: REG REF SPEC: [id number] USMAN: 06/15/17-[address] [facility] [address]: Jenna Kolb [employer] REQ: [id number] RECD: 06/15/17 STATUS: COMP _ SOURCE: URINE SPDESC: ORDERED: Urine Culture COMMENTS: 1URINE VACUTAINER [id number] Urine Source: Random Procedure Result Reported Site Urine Culture Final 06/17/17746 ML No growth of clinically significant organisms * ML - MAIN LAB (PSC1) . END OF REPORT * ML=Testing performed at Main Lab DEPARTMENT OF PATHOLOGY, [address] [place] [address] Eran Gutierrez M.D. Director [facility] # [id number] 2 RESULTS VERIFIED BY REPEAT ANALYSIS 3 [facility]: URINE 4 Female urine specimens have been self-validated by [facility] and have been granted conditional assay approval by [facility]. 5 SEE RESULT BELOW Name: AZAM TAMAYO : [address]: Steve Cuba MD Acct: [id number] Unit: [id number] AGE: 24 Location: [facility] Re02/03/15 SEX: F Status: DEP ER SPEC: [id number] USMAN: 02/03/15-[address] [facility] [address]: Steve Cuba MD REQ: [id number] RECD: 02/04/15 STATUS: [facility]ARY [facility] DR: [facility] Dariusz Spain MD _ SOURCE: URINE SPDESC: ORDERED: Urine Culture Procedure Result Verified Site Urine Culture Final 02/06/15- 1010 ML Organism 1 NORMAL HUSSEIN [place] Count >100,000 (Many) CFU/ML * ML - MAIN LAB (PSC1) . END OF REPORT * ML=Testing performed at Main Lab DEPARTMENT OF PATHOLOGY, [facility] [place], [place] [address] Eran Gutierrez M.D. Director [facility] # [id number] RUN DATE: 11/04/12 [facility] LAB LIVE PAGE 1 RUN TIME: 1421 [facility] [employer] [place], [place] [address] Specimen Inquiry Name: AZAM TAMAYO : [address]: Galilea Alvarez MD Acct: [id number] Unit: [id number] AGE: 22 Location: [facility] Re11/03/12 SEX: F Status: DEP ER SPEC: [id number] USMAN: 11/03/12-[address] [facility] [address]: Nancy Koehler NP REQ: [id number] RECD: 11/04/12-1054 STATUS: MARY MCDER[facility] DR: Dariusz Alvarez MD _ SOURCE: VAGINAL SPDESC: ORDERED: Affirm Procedure Result Verified Site Affirm Vaginal DNA Probe Final 11/04/12- 1422 ML Trichomonas Negative Gardnerella Positive Melissa Negative The presence of G. vaginalis, although suggestive, is not diagnostic for bacterial vaginosis. Results should be interpreted in conjunction with other clinical and laboratory data available. Women with vaginal discharge should be evaluated for risk factors of cervicitis and pelvic inflammatory disease, toxic shock syndrome (S.aureus), and if present, evaluated for organisms not included in this assay such as N. gonorrhoeae, C. trachomatis, Mobiluncus, Mycoplasma and/or Prevotella. Mixed infections may occur. The performance of this test on patient specimens collected during or immediately after antimicrobial therapy is unknown. The presence or absence of Melissa species, G. vaginalis or T. vaginalis cannot be used as a test for therapeutic success or failure. END OF REPORT * ML=Testing performed at Main Lab DEPARTMENT OF PATHOLOGY, [facility] [place], [place] [address] Eran Gutierrez M.D. Director [facility] Permit #[id number] RUN DATE: 11/05/12 [facility] LAB LIVE PAGE 1 RUN TIME: 1301 [facility] [employer] [place], [place] [address] Specimen Inquiry Name: AZAM TAMAYO : [address]: Galilea Alvarez MD Acct: [id number] Unit: [id number] AGE: 22 Location: [facility] Re11/03/12 SEX: F Status: DEP ER SPEC: [id number] USMAN: 11/03/12-[address] [facility] [address]: Nancy Koehler NP REQ: [id number] RECD: 11/04/12 STATUS: MARY MCDER[facility] DR: Dariusz Alvarez MD _ SOURCE: ENDOCERVIX SPDESC: ORDERED: GC/Chlam RNA Procedure Result Verified Site Chlamydia Trachomatis RNA Final 11/05/12- 1301 ML NEGATIVE for Chlamydia trachomatis rRNA GC (N. gonorrhoeae) RNA Final 11/05/12- 1301 ML NEGATIVE for Neisseria gonorrhoeae rRNA A negative result does not preclude the presence of a C. trachomatis or N. gonorrhoeae infection because results are dependent on adequate specimen collection, absence of inhibitors, and sufficient rRNA to be detected. Test results may be affected by improper specimen collection, improper storage, technical error, or specimen mixup. Limitations of the Procedure: The Aptima Combo 2 Assay is not intended for the evaluation of suspected sexual abuse or for other medico-legal indications. For those patients for whom a false positive result may have adverse psychosocial impact, the [facility] recommends retesting by a method using an alternate technology. Therapeutic failure or success cannot be determined with the Aptima Combo 2 Assay since nucleic acid may persist following appropriate antimicrobial therapy. Results from the Aptima Combo 2 Assay should be interpreted in conjunction with other laboratory and clinical data available to the clinican. CONTINUED ON NEXT PAGE * ML=Testing performed at Main Lab DEPARTMENT OF PATHOLOGY, [facility] [place] [id number] Eran Gutierrez M.D. Director [facility] Permit #[id number] RUN DATE: 11/05/12 [facility] LAB LIVE PAGE 2 RUN TIME: [address] [place] [address] Specimen Inquiry Patient: AZAM TAMAYO [id number] (Continued) Specimen: [id number] Collected: 11/03/12-1440 Received: 11/04/12-1054 (Continued) Procedure Result Verified Site GC (N. gonorrhoeae) RNA Final (continued) 11/05/12- 1301 Performance characteristics for detecting C. trachomatis and N. gonorrhoeae are derived from high prevalence populations. Positive results in low prevalence populations should be interpreted carefully with the understanding that the likelihood of a false positive may be higher than a true positive. END OF REPORT * ML=Testing performed at Main Lab DEPARTMENT OF PATHOLOGY, [address] [place] [address] Eran Gutierrez M.D. Director [facility] Permit #[id number] Procedures Date Code Description Status 01/22/2019 08226 Brief Emotional/Behav Assessment W/ Scoring Doc Per Completed Standard Inst Encounters Type Date Location Provider Dx Diagnosis Office Visit 01/22/2019 [facility] Office Caryl Deluna F41.9 Anxiety disorder, 10:30a ZACHARY Cuba unspecified F43.23 Adjustment disorder with mixed anxiety and depressed mood Z56.6 Other physical and mental strain related to work Office Visit 05/01/2018 8:00a [facility] Office Jenna H92.01 Otalgia, right Cortes, [employer] HANDLER ear R21 Rash and other nonspecific skin eruption Office Visit 11/01/2017 1:30p [facility] Office Corine Aceves, R39.15 Urgency of INCIDENT HANDLER urination Office Visit 06/01/2017 4:30p [facility] Office Jenna K58.0 Irritable bowel Cortes, INCIDENT HANDLER syndrome with diarrhea R35.0 Frequency of micturition R39.15 Urgency of urination R63.5 Abnormal weight gain Z00.01 Encounter for general adult medical exam w abnormal findings Office Visit 03/26/2017 1:30p Main Office Raquel Laura Z30.9 Encounter for Tito Bah contraceptive management, unspecified Office Visit 08/22/2012 3:15p Main Office Nancy Rush, 564.1 Irritable Bowel Afnp-C Syndrome Plan of Treatment 02/13/2019 - Raquel Bah M.D.F41.9 Anxiety disorder, unspecifiedComments: recommend going back to 40 mg of prozac daily. keep the gabapentin around for breakthrough anxietyFollow up:soon for physica. 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 Yes No Are there Barriers to Adherence? Yes No Has the patient been asked about herbal supplements and therapies, and OTC meds? Yes No
[2019-02-24 17:35] VITALS: BP 119/83
--- NOTE | 2019-02-24 18:20 | UC ---
Hand/Wrist HPI - HPI Summary HPI Summary: 28-year-old female presents with complaints of left wrist pain. States earlier today she was taking the garbage and accidentally struck her radial wrist on the garbage can. States pain has progressively worsened throughout the day. She took acetaminophen just prior to arrival. Denies any numbness or tin - History Of Current Complaint Chief Complaint: UCUpperExtremity Stated Complaint: WRIST INJURY Time Seen by Provider: 02/24/19 17:52 Hx Obtained From: Patient Hx Last Menstrual Period: 12/09/18 Pain Intensity: 7 - Allergies/Home Medications Allergies/Adverse Reactions: Allergies Allergy/AdvReac Type Severity Reaction Status Date / Time No Known Allergies Allergy Verified 02/24/19 17:35 Home Medications: Home Medications Fluoxetine HCl [Prozac] 40 mg PO 02/24/19 [History] PMH/Surg Hx/FS Hx/Imm Hx Previously Healthy: Yes Psychological History: Depression - Surgical History Surgical History: None - Family History Known Family History: Positive: Hypertension Negative: Cardiac Disease, Diabetes - Social History Occupation: Employed Full-time Lives: With Family Alcohol Use: Weekly Alcohol Amount: 2x weekly Substance Use Type: None Smoking Status (MU): Never Smoked Tobacco - Immunization History Most Recent Influenza Vaccination: none Hx Tetanus, Diphtheria Vaccination: No - unsure when she had last vaccine Review of Systems All Other Systems Reviewed And Are Negative: Yes Constitutional: Positive: Negative Skin: Negative: Bruising Respiratory: Positive: Negative Cardiovascular: Positive: Negative Gastrointestinal: Positive: Negative Genitourinary: Positive: Negative Motor: Negative: Weakness Neurovascular: Negative: Decreased Sensation Musculoskeletal: Positive: Other: - See HPI Neurological: Positive: Negative Is Patient Immunocompromised?: No Physical Exam - Summary Physical Exam Summary: GENERAL APPEARANCE: Well developed, well nourished, alert and cooperative, and appears to be in no acute distress. CARDIAC: Normal S1 and S2. No S3, S4 or murmurs. Rhythm is regular. There is no peripheral edema, cyanosis or pallor. Extremities are warm and well perfused. Capillary refill is less than 2 seconds. Peripheral pulses intact. LUNGS: Clear to auscultation without rales, rhonchi, wheezing or diminished breath sounds. ABDOMEN: Positive bowel sounds. Soft, nondistended, nontender. No guarding or rebound. No masses or hepatosplenomegally. MUSKULOSKELETAL: Normal muscular development. Normal gait. EXTREMITIES: Tenderness to the distal radius without gross deformity, ecchymosis , or edema. Full ROM to the wrist. Circulation and sensation intact. SKIN: Skin normal color, texture and turgor with no lesions or eruptions. Triage Information Reviewed: Yes Vital Signs: Initial Vital Signs Temp 97.7 F 02/24/19 17:31 Pulse 63 02/24/19 17:31 Resp 18 02/24/19 17:31 BP 119/83 02/24/19 17:31 Pulse Ox 100 02/24/19 17:31 Vital Signs Reviewed: Yes Hand/Wrist Course/Dx - Course Course Of Treatment: 28-year-old female presents with complaints of left wrist pain. States earlier today she was taking the garbage and accidentally struck her radial wrist on the garbage can. States pain has progressively worsened throughout the day. She took acetaminophen just prior to arrival. Denies any numbness or tingling. Afebrile. Vital signs stable. Patient had tenderness to the distal radius without gross deformity, ecchymosis, or edema. Full ROM to the wrist. Circulation and sensation intact. X-ray showed a questionable nondisplaced fracture of the distal radius. Final reading is pending. Patient was placed in a cock up wrist splint by the RN. Circulation sensation were intact pre-and post-application. Recommend conservative treatment including [id number] analgesics and RACE. She is to follow-up with orthopedic surgery in 5-7 days for hydration and treat. Anticipatory guidance and warning symptoms were reviewed with the patient. Verbalized understanding and agrees with plan of care. - Differential Dx/Diagnosis Differential Diagnosis/HQI/PQRI: Contusion, Dislocation, Fracture, Sprain Provider Diagnosis: Nondisplaced fracture of distal end of radius Discharge - Sign-Out/Discharge Documenting (check all that apply): Patient Departure All imaging exams completed and their final reports reviewed: No Studies - Discharge Plan Condition: Stable Disposition: HOME Patient Education Materials: Suspected Fracture (ED) Referrals: Raquel Bah MD [Primary Care Provider] - Antwan Arenas MD [Medical Doctor] - 5 Days Additional Instructions: The x-ray performed in the clinic today showed evidence of a possible nondisplaced fracture or the distal radius. The x-ray will be reviewed by the radiologist tomorrow and we will contact you if there is any change in your plan of care. Wear the splint that was applied at all times. You may remove to shower but should wear at all other times. Rest the wrist as much as possible. Apply ice to the affected area for 15-20 minutes at least 4 times a day to help with the pain and swelling. Elevate the arm to help reduce swelling. Take acetaminophen (Tylenol) or ibuprofen (Advil, Motrin) according to directions as needed for pain. Follow up with orthopedic surgery in 5-7 days for further evaluation and treatment. Call tomorrow for an appointment. Seek immediate medical attention if you have severe pain not managed with pain medication, develop numbness or tingling in the hand or fingers or have any worsening of symptoms. - Billing Disposition and Condition Condition: STABLE Disposition: Home - Attestation Statements Provider Attestation: Per institutional requirements, I have reviewed the chart, however, I was not consulted specifically or made aware of this patient by the midlevel provider. I did not personally evaluate, interact with , or disposition this patient.
--- NOTE | 2019-02-24 18:44 | ED ---
Progress - Progress Note Progress Note: Wet read of x-ray - ? nondisplaced fracture of the distal left radius. Course/Dx - Diagnoses Provider Diagnoses: Nondisplaced fracture of distal end of radius Discharge - Sign-Out/Discharge Documenting (check all that apply): Patient Departure All imaging exams completed and their final reports reviewed: No - Discharge Plan Condition: Stable Disposition: HOME Patient Education Materials: Suspected Fracture (ED) Referrals: Antwan Arenas MD [Medical Doctor] - 5 Days Raquel Bah MD [Primary Care Provider] - Additional Instructions: The x-ray performed in the clinic today showed evidence of a possible nondisplaced fracture or the distal radius. The x-ray will be reviewed by the radiologist tomorrow and we will contact you if there is any change in your plan of care. Wear the splint that was applied at all times. You may remove to shower but should wear at all other times. Rest the wrist as much as possible. Apply ice to the affected area for 15-20 minutes at least 4 times a day to help with the pain and swelling. Elevate the arm to help reduce swelling. Take acetaminophen (Tylenol) or ibuprofen (Advil, Motrin) according to directions as needed for pain. Follow up with orthopedic surgery in 5-7 days for further evaluation and treatment. Call tomorrow for an appointment. Seek immediate medical attention if you have severe pain not managed with pain medication, develop numbness or tingling in the hand or fingers or have any worsening of symptoms. - Billing Disposition and Condition Condition: STABLE Disposition: Home
--- NOTE | 2019-02-25 12:51 | UC ---
- Progress Note Progress Note: RADIOLOGY REPORT FOLLOWS: Along the medial margin of the distal left radius there is cortical irregularity as well as a faint sclerotic line oriented perpendicular to the axis of the shaft of the bone. Presenting with an acute injury this is more likely a normal variant as such an appearance would be more consistent with a subacute to chronic injury. WOULD FOLLOW-UP WITH ORTHO ADVISED. NO CHANGE IN MGMT. Course/Dx - Diagnoses Provider Diagnoses: Nondisplaced fracture of distal end of radius Discharge - Sign-Out/Discharge Documenting (check all that apply): Post-Discharge Follow Up All imaging exams completed and their final reports reviewed: Yes - Discharge Plan Condition: Stable Disposition: HOME Patient Education Materials: Suspected Fracture (ED) Referrals: Antwan Arenas MD [Medical Doctor] - 5 Days Raquel Bah MD [Primary Care Provider] - Additional Instructions: The x-ray performed in the clinic today showed evidence of a possible nondisplaced fracture or the distal radius. The x-ray will be reviewed by the radiologist tomorrow and we will contact you if there is any change in your plan of care. Wear the splint that was applied at all times. You may remove to shower but should wear at all other times. Rest the wrist as much as possible. Apply ice to the affected area for 15-20 minutes at least 4 times a day to help with the pain and swelling. Elevate the arm to help reduce swelling. Take acetaminophen (Tylenol) or ibuprofen (Advil, Motrin) according to directions as needed for pain. Follow up with orthopedic surgery in 5-7 days for further evaluation and treatment. Call tomorrow for an appointment. Seek immediate medical attention if you have severe pain not managed with pain medication, develop numbness or tingling in the hand or fingers or have any worsening of symptoms. - Billing Disposition and Condition Condition: STABLE Disposition: Home
== END 2019-02-24 18:36 | disposition home or self-care (01) ==
LOC: UCEAST 17:27
DX: S52.502A Unspecified fracture of the lower end of left radius, initial encounter for closed fracture (principal); W22.8XXA Striking against or struck by other objects, initial encounter; Y92.9 Unspecified place or not applicable; F32.9 Major depressive disorder, single episode, unspecified
CPT/HCPCS: 99212; G0463

== ENCOUNTER 2019-02-27 20:02 | Emergency (ER) | payer BC ==
[2019-02-27 20:13] VITALS: BP 142/99
== END 2019-02-27 21:00 | disposition left against medical advice (07) ==
LOC: UCEAST 20:02
DX: T14.8XXD Other injury of unspecified body region, subsequent encounter (principal); X58.XXXD Exposure to other specified factors, subsequent encounter; Z53.21 Procedure and treatment not carried out due to patient leaving prior to being seen by health care provider

== ENCOUNTER 2019-05-30 07:24 | Emergency (ER) | payer BC ==
--- OUTSIDE RECORDS SUMMARY | 2019-05-30 07:29 | XMS REPORT | Continuity of Care Document ---
:1990 External Reference #:[id number] Author Name Raquel Bah M.D. 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 Onset: 02/13/2019 Social History Type Date Description Comments Sex Unknown Tobacco Use Start: Unknown Never Smoked Cigarettes ETOH Use Occasional 3 drinks a week. Allergies, Adverse Reactions, Alerts Description No Known Drug Allergies Medications Active Medications SIG Qnty Indications Ordering Provider Date Fluoxetine HCL 1 by mouth every 90caps Raquel LRadha 04/16/2019 20mg other day in a Tito Bah Capsules weaning protocol with the 40 mg pills Microgestin 09/08 take one tablet 63tabs Caryl Deluna by mouth every ZACHARY [place] 1-20mg-mcg Tablets day as directed Fluoxetine HCL 1 by mouth every 30caps Raquel LRadha 40mg day Tito Bah Capsules Adderall XR 1 by mouth every 30caps Raquel LRadha 20mg Caps day Tito Bah ER 24HR History Medications Fluoxetine HCL 1 by mouth every 60caps F41.9 Caryl Deluna 01/22/2019 - 20mg day in combination ZACHARY [place] 04/16/2019 Capsules with 40mg capsule for total dose of 60mg Propranolol HCL take 1 tablet by 60tabs F41.9 Caryl Deluna 01/22/2019 - mouth three times a ZACHARY [place] 02/13/2019 20mg Tablets day as needed for anxiety Gabapentin one by mouth three 45caps F41.9 Caryl Vela. 01/22/2019 - 300mg times daily as ZACHARY [place] 04/16/2019 Capsules needed for anxiety Immunizations Description No Information Available Vital Signs Date Vital Result Comment 04/16/2019 2:37pm BP Systolic 114 mmHg BP Diastolic 94 mmHg Heart Rate 64 /min Body Temperature 97.5 F Respiratory Rate 12 /min Height 68 inches 5'8" per pt/refused Weight 175.00 lb per pt BMI (Body Mass Index) 26.6 kg/m2 02/13/2019 6:14pm BP Systolic 120 mmHg BP Diastolic 66 mmHg Heart Rate 84 /min Body Temperature 97.8 F Respiratory Rate 17 /min Height 68 inches 5'8" per pt/refused Weight 175.00 lb BMI (Body Mass Index) 26.6 kg/m2 Results Description No Information Available Procedures Date Code Description Status 01/22/2019 54193 Brief Emotional/Behav Assessment W/ Scoring Doc Per Completed Standard Inst Medical Devices Description No Information Available Encounters Type Date Location Provider Dx Diagnosis Office Visit 02/13/2019 Main Office Raquel Bah, F41.9 Anxiety disorder, 6:00p M.DRadha unspecified F90.0 Attn-defct hyperactivity disorder, predom inattentive type Office Visit 01/22/2019 10:30a [facility] Caryl VelaRadha F41.9 Anxiety disorder, ZACHARY [place] unspecified F43.23 Adjustment disorder with mixed anxiety and depressed mood Z56.6 Other physical and mental strain related to work Assessments Date Code Description Provider 04/16/2019 F41.9 Anxiety disorder, unspecified Raquel Bah M.D. 04/16/2019 F90.0 Attention-deficit hyperactivity disorder, Raquel Bah M.D. predominantly inat 04/16/2019 Z00.00 Encounter for general adult medical Raquel Bah M.D. examination without abnormal findings 04/16/2019 E55.9 Vitamin D deficiency, unspecified Raquel Bah M.D. 02/13/2019 F41.9 Anxiety disorder, unspecified Raquel Bah M.D. 02/13/2019 F90.0 Attention-deficit hyperactivity disorder, Raquel Bah M.D. predominantly inat 01/22/2019 F41.9 Anxiety disorder, unspecified Caryl [place], ZACHARY 01/22/2019 F43.23 Adjustment disorder with mixed anxiety and Caryl [place] NP depressed mood 01/22/2019 Z56.6 Other physical and mental strain related to Caryl [place] NP work Plan of Treatment Future Appointment(s):04/22/2019 8:00 am - Raquel Bah M.D. at [id number]/01/2019 2:00 pm - Raquel Bah M.D. at [facility] [id number] - Raquel Bah M.D.F41.9 Anxiety disorder, unspecifiedComments:will start to decrease slowly in preparation for getting in the next year or so. 98-24-70-40-40-20. x 1 month. 40-20-20 40-20-20 x 1 month. See how this works for you. If this works, after2 months, you can take 20 mg a day x 1 month. return after that for further weaning in structions.F90.0 Attention- deficit hyperactivity disorder, predominantly inatComments:continue the adderall for now.Z00.00 Encounter for general adult medical examination without abnormal findingsNew Labs:CBC Electronic (Fma), Ordered: 04/16/19CCC-Comp+Lipid (Fma), Ordered: 04/16/19TSH 3G, Ordered: 04/16/19Comments:recommend you get connected with the OB-RN MEDICAL SURGICAL doctors in [facility] for your pap and breast exam, then also preconceptual counselling.E55.9 Vitamin D deficiency, unspecifiedNew Labs: Vitamin D, 25Hydroxy(Fma/LC, Ordered: 04/16/19AllNew Medication:Fluoxetine HCL 20 mg - 1 by mouth every other day in a weaning protocol with the 40 mg pillsComments:Medication Management Patient Understands medications she's taking ? Yes No Are there Barriers to Adherence? Yes No Has the patient been asked about herbal supplements and therapies, and OTC meds? Yes No Functional Status Description No Information Available Mental Status Description No Information Available Referrals Description No Information Available
[2019-05-30 07:36] VITALS: BP 135/80
--- NOTE | 2019-05-30 07:59 | UC ---
Lower Extremity/Ankle HPI - HPI Summary HPI Summary: PATIENT STUBBED HER TOE YESTERDAY WHILE CLEANING THE HOUSE. WOKE UP TO 40 5 AM WITH SEVERE PAIN IN THE LEFT FIFTH TOE. PAIN IS IMPROVED BUT HAS BEEN PERSISTENT SINCE THEN. WORSE WITH WEIGHTBEARING. - History of Current Complaint Chief Complaint: UCLowerExtremity Stated Complaint: L TOE PAIN Time Seen by Provider: 05/30/19 07:43 Hx Obtained From: Patient Hx Last Menstrual Period: 05/22/19 Onset/Duration: Sudden Onset, Lasting Hours, Still Present Severity Initially: Moderate Severity Currently: Moderate Pain Intensity: 8 Pain Scale Used: 0-10 Numeric Aggravating Factor(s): Standing, Ambulation Alleviating Factor(s): Rest Able to Bear Weight: Yes - Allergies/Home Medications Allergies/Adverse Reactions: Allergies Allergy/AdvReac Type Severity Reaction Status Date / Time No Known Allergies Allergy Verified 05/30/19 07:33 Home Medications: Home Medications Acetaminophen [Mapap] 1,000 mg PO ONCE PRN 05/30/19 [History Confirmed 05/30/19] PMH/Surg Hx/FS Hx/Imm Hx Psychological History: Anxiety Other Psychological History: ADHD - Surgical History Surgical History: None - Family History Known Family History: Positive: Hypertension Negative: Cardiac Disease, Diabetes - Social History Alcohol Use: Weekly Alcohol Amount: 2x weekly Substance Use Type: None Smoking Status (MU): Never Smoked Tobacco - Immunization History Most Recent Influenza Vaccination: none Hx Tetanus, Diphtheria Vaccination: No - unsure when she had last vaccine Review of Systems All Other Systems Reviewed And Are Negative: Yes Constitutional: Positive: Negative Skin: Positive: Negative Respiratory: Positive: Negative Cardiovascular: Positive: Negative Gastrointestinal: Positive: Negative Musculoskeletal: Positive: Arthralgia, Decreased ROM Physical Exam Triage Information Reviewed: Yes Appearance: Well-Appearing, No Pain Distress, Well-Nourished Vital Signs: Initial Vital Signs Temp 97.4 F 05/30/19 07:28 Pulse 92 05/30/19 07:28 Resp 18 05/30/19 07:28 BP 135/80 05/30/19 07:28 Pulse Ox 100 05/30/19 07:28 Vital Signs Reviewed: Yes Eyes: Positive: Conjunctiva Clear ENT: Positive: Hearing grossly normal Neck: Positive: Supple Respiratory: Positive: No respiratory distress, No accessory muscle use Cardiovascular: Positive: Pulses Normal Abdomen Description: Positive: Soft Musculoskeletal: Positive: ROM Intact, No Edema, Other: - TTP LEFT FOOT 4TH [employer]. NO DISCRETE BONY TENDERNESS Neurological: Positive: Alert Psychological: Positive: Age Appropriate Behavior Skin: Negative: Rashes Diagnostics - Radiology LEFT FOOT XRAY Radiology Interpretation Completed By: Radiologist Summary of Radiographic Findings: NO EVIDENCE FOR FRACTURE. Lower Extremity Course/Dx - Course Course Of Treatment: X-RAYS TODAY NEGATIVE FOR FRACTURE OR DISLOCATION. 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 POSTOP SHOE FOR COMFORT AND TO HELP WITH MOBILITY. FOLLOW-UP WITH ORTHOPEDICS IF NOT IMPROVING EXPECTED OVER THE NEXT COUPLE OF WEEKS. - Differential Dx/Diagnosis Provider Diagnosis: Sprain of left foot Discharge ED - Sign-Out/Discharge Documenting (check all that apply): Patient Departure All imaging exams completed and their final reports reviewed: Yes - Discharge Plan Condition: Stable Disposition: HOME Patient Education Materials: Foot Sprain (ED) Referrals: Raquel Bah MD [Primary Care Provider] - If Needed Wendi Abbott MD [Medical Doctor] - If Needed Additional Instructions: XRAY TODAY NEGATIVE FOR FRACTURE OR DISLOCATION. YOUR SYMPTOMS SHOULD IMPROVE SIGNIFICANTLY OVER THE NEXT 1-2 WEEKS. IF YOU DO NOT IMPROVE EXPECTED FOLLOW- UP WITH YOUR PCP OR ORTHO. OTC IBUPROFEN OR ALEVE NEEDED FOR DISCOMFORT. REST , ICE, ELEVATE. POST-OP SHOE NEEDED TO AID WITH MOBILITY. CONSIDER MORTONS NEUROMA. WEAR SHOES WITH SUPPORT UNDER THE FRONT OF YOUR FOOT. DO NOT WEAR TIGHT SHOES. . - Billing Disposition and Condition Condition: STABLE Disposition: Home
== END 2019-05-30 08:45 | disposition home or self-care (01) ==
LOC: UCEAST 07:24
DX: S93.602A Unspecified sprain of left foot, initial encounter (principal); F90.9 Attention-deficit hyperactivity disorder, unspecified type; X58.XXXA Exposure to other specified factors, initial encounter; Y93.E9 Activity, other interior property and clothing maintenance; Y92.009 Unspecified place in unspecified non-institutional (private) residence as the place of occurrence of the external cause
CPT/HCPCS: 99211; G0463

== ENCOUNTER 2019-10-07 14:52 | Emergency (ER) | payer BC ==
[2019-10-07 15:16] VITALS: BP 147/91
--- NOTE | 2019-10-07 15:46 | UC ---
Abdominal Pain Female HPI - HPI Summary HPI Summary: 29-year-old female comes in waves of lower abdominal pain. It started last evening. It's bilateral. At its worse is an 8 out of 10. On her initial interaction was 4 out of 10 however the pain went back to 8 out of 10 during her conversation. Denies any urinary symptoms of burning with urination or urinary frequency. Her last period was September 08, 2019. Patient is on control pills. Patient has a history of IBS. She reports this does not feel like her IBS. No fevers measured. No prior abdominal surgeries. Patient had a similar episode which was not as bad approximate one month ago. With her IBS she typically has loose stools once a day and she had a loose stool this morning and it did not improve the pain. - History of Current Complaint Chief Complaint: UCAbdominalPain Stated Complaint: ABD PAIN Time Seen by Provider: 10/07/19 15:13 Hx Last Menstrual Period: 1 month ago Pain Intensity: 8 Allergies/Adverse Reactions: Allergies Allergy/AdvReac Type Severity Reaction Status Date / Time No Known Allergies Allergy Verified 10/07/19 15:12 Home Medications: Home Medications Ibuprofen [Advil] 400 mg PO Q6H PRN 10/07/19 [History Confirmed 10/07/19] Simethicone [Gas Relief] 125 mg PO Q6H PRN 10/07/19 [History Confirmed 10/07/19] PMH/Surg Hx/FS Hx/Imm Hx Previously Healthy: Yes Other GI/ History: IBS - Surgical History Surgical History: None - Family History Known Family History: Positive: Hypertension Negative: Cardiac Disease, Diabetes - Social History Alcohol Use: Occasionally Alcohol Amount: 2x weekly Substance Use Type: Marijuana Substance Use Comment - Amount & Last Used: weekly Smoking Status (MU): Never Smoked Tobacco - Immunization History Most Recent Influenza Vaccination: none Hx Tetanus, Diphtheria Vaccination: No - unsure when she had last vaccine Review of Systems All Other Systems Reviewed And Are Negative: Yes Constitutional: Positive: Other - SEE HPI Skin: Positive: Negative Eyes: Positive: Negative ENT: Positive: Negative Respiratory: Positive: Negative Cardiovascular: Positive: Negative Gastrointestinal: Positive: Abdominal Pain, Other - SEE HPI Genitourinary: Positive: Negative Motor: Positive: Negative Neurovascular: Positive: Negative Musculoskeletal: Positive: Negative Neurological/Mental Status: Positive: Negative Psychological: Positive: Negative Is Patient Immunocompromised?: No Physical Exam Triage Information Reviewed: Yes Appearance: Well-Appearing, Well-Nourished, Pain Distress - MILD Vital Signs: Initial Vital Signs Temp 99.3 F 10/07/19 15:14 Pulse 84 10/07/19 15:14 Resp 18 10/07/19 15:14 BP 147/91 10/07/19 15:14 Pulse Ox 100 10/07/19 15:14 Vital Signs Reviewed: Yes Eye Exam: Normal Eyes: Positive: Conjunctiva Clear Neck: Positive: Supple Respiratory: Positive: Lungs clear, Normal breath sounds, No respiratory distress Cardiovascular: Positive: RRR Abdomen Description: Positive: Other: - Negative heel strike negative obturator sign. Patient's tender to palpation in the right lower quadrant and left lower quadrant. Epigastric and upper abdomen is nontender to palpation. Bowel Sounds: Positive: Hypoactive Musculoskeletal: Positive: Strength Intact, ROM Intact Neurological: Positive: Alert, Muscle Tone Normal Psychological: Positive: Age Appropriate Behavior Skin Exam: Normal Abd Pain Female Course/Dx - Course Course Of Treatment: Due to the severity of the patient's pain which is an 8 out of 10 I recommended further evaluation in the emergency department. Patient preferred to go by POV. - Differential Dx/Diagnosis Provider Diagnosis: Abdominal pain Discharge ED - Sign-Out/Discharge Documenting (check all that apply): Patient Departure All imaging exams completed and their final reports reviewed: No Studies - Discharge Plan Condition: Stable Disposition: HOME-RECOMMEND TO ED Patient Education Materials: Acute Abdominal Pain (ED) Referrals: Raquel Bah MD [Primary Care Provider] - Additional Instructions: GO DIRECTLY TO THE EMERGENCY DEPARTMENT FOR FURTHER EVALUATION OF YOUR ABDOMINAL PAIN. - Billing Disposition and Condition Condition: STABLE Disposition: Home-Recommend to ED
== END 2019-10-07 16:05 | disposition home health service (06) ==
LOC: UCEAST 14:52
DX: R10.32 Left lower quadrant pain (principal); R10.31 Right lower quadrant pain; R10.10 Upper abdominal pain, unspecified; R10.13 Epigastric pain; K58.9 Irritable bowel syndrome, unspecified; Z79.899 Other long term (current) drug therapy; Z79.3 Long term (current) use of hormonal contraceptives
CPT/HCPCS: 81003; 84702; 87086; 99212; G0463

== ENCOUNTER 2019-10-07 16:18 | Emergency (ER) | payer BC ==
[2019-10-07] MEDS ORDERED: Ketorolac INJ* 30 MG/ML 1 ML VIAL IM ONE (18:11)
--- NOTE | 2019-10-07 18:16 | ED ---
GI/ HPI - HPI Summary HPI Summary: 29 year old female presents with abdominal pain today. It is constant but she gets intense pains waves. She states that she has pain in bilateral lower quadrant. States that it is a mixture of gas and menstrual cramp pain. She has a history of chronic diarrhea and had some this morning but did not change the pain. took some Advil which did not change the pain. No previous abdominal surgeries. no history of ovarian cysts. She is on control. She denies any chest pain shortness of breath. no urinary symptoms. - History of Current Complaint Chief Complaint: EDAbdPain Time Seen by Provider: 10/07/19 18:00 Stated Complaint: ABD PAIN PER PT Hx Last Menstrual Period: 1 month ago Pain Intensity: 4 - Allergy/Home Medications Allergies/Adverse Reactions: Allergies Allergy/AdvReac Type Severity Reaction Status Date / Time No Known Allergies Allergy Verified 10/07/19 15:12 Home Medications: Home Medications FLUoxetine CAP* [PROzac CAP*] 20 mg PO EVERY OTHER DAY 10/07/19 [History Confirmed 10/07/19] PMH/Surg Hx/FS Hx/Imm Hx Endocrine/Hematology History: Denies: Hx Diabetes, Hx Thyroid Disease Cardiovascular History: Denies: Hx Hypertension Respiratory History: Denies: Hx Asthma, Hx Chronic Obstructive Pulmonary Disease (COPD) GI History: Denies: Hx Ulcer Musculoskeletal History: Denies: Hx Scoliosis Neurological History: Denies: Hx Headaches Infectious Disease History: No Infectious Disease History: Denies: Hx Clostridium Difficile, Hx Hepatitis, Hx Human Immunodeficiency Virus (HIV), Hx of Known/Suspected MRSA, Hx Shingles, Hx Tuberculosis, Hx Known/ Suspected VRE, Hx Known/Suspected VRSA, History Other Infectious Disease, Traveled Outside the in Last 30 Days - Family History Known Family History: Positive: Hypertension Negative: Cardiac Disease, Diabetes - Social History Alcohol Use: Occasionally Alcohol Amount: 2x weekly Hx Substance Use: No Substance Use Type: Reports: Marijuana Substance Use Comment - Amount & Last Used: weekly Hx Tobacco Use: No Smoking Status (MU): Never Smoked Tobacco Review of Systems Negative: Fever Negative: Chest Pain Negative: Shortness Of Breath Positive: Abdominal Pain. Negative: Vomiting, Diarrhea, Nausea All Other Systems Reviewed And Are Negative: Yes Physical Exam Triage Information Reviewed: Yes Vital Signs On Initial Exam: Initial Vitals Temp Pulse Resp BP Pulse Ox 97.2 F 81 18 151/103 98 10/07/19 16:18 10/07/19 16:18 10/07/19 16:18 10/07/19 16:18 10/07/19 16:18 Vital Signs Reviewed: Yes Appearance: Positive: Well-Appearing Skin: Positive: Warm, Dry Head/Face: Positive: Normal Head/Face Inspection Eyes: Positive: Normal, Conjunctiva Clear ENT: Positive: Pharynx normal Respiratory/Lung Sounds: Positive: Clear to Auscultation, Breath Sounds Present Cardiovascular: Positive: Normal, RRR Abdomen Description: Positive: Soft, Other: - tenderness in bilateral lower quadrants Bowel Sounds: Positive: Present Musculoskeletal: Positive: Normal Neurological: Positive: Normal Psychiatric: Positive: Normal Procedures - Sedation Patient Received Moderate/Deep Sedation with Procedure: No Diagnostics - Vital Signs Vital Signs Temp Pulse Resp BP Pulse Ox 10/07/19 16:18 97.2 F 81 18 151/103 98 - Laboratory Result Diagrams: 10/07/19 18:28 10/07/19 18:28 Lab Statement: Any lab studies that have been ordered have been reviewed, and results considered in the medical decision making process. - Ultrasound No standard instances Ultrasound Interpretation Completed By: Radiologist Summary of Ultrasound Findings: IMPRESSION: Sonographically normal uterus and ovaries. Re-Evaluation - Re-Evaluation First Eval Re-Evaluation Time: 20:27 Comment: nontender RLQ, slight tenderness LLQ GIGU Course/Dx - Course Course Of Treatment: 29 year old female presents with abdominal pain today. It is constant but she gets intense pains waves. She states that she has pain in bilateral lower quadrant. States that it is a mixture of gas and menstrual cramp pain. She has a history of chronic diarrhea and had some this morning but did not change the pain. took some Advil which did not change the pain. No previous abdominal surgeries. no history of ovarian cysts. She is on control. She denies any chest pain shortness of breath. no urinary symptoms. On exam mild diffuse lower abdominal tenderness pain. wbc 14. crp normal. Ultrasound shows no acute process. reevaulation nontender RLQ. patient points to ovarian area where pain is. states she is due for her period so could be menstrual pain. told take take tyenlol and ibuprofen. told follow up with primary. told if symptoms worsen or change to return. patient understand and agrees with plan. - Diagnoses Differential Diagnoses - Female: Appendicitis, Gastroenteritis (Viral), Ovarian Cyst Provider Diagnoses: Abdominal pain Discharge ED - Sign-Out/Discharge Documenting (check all that apply): Patient Departure - Discharge Plan Condition: Good Disposition: HOME Patient Education Materials: Abdominal Pain (ED) Referrals: Raquel Bah MD [Primary Care Provider] - Additional Instructions: Drink small amounts of fluid as tolerated When able to eat follow BRAT diet: Bananas, rice, applesauce, toast Take ibuprofen or Tylenol for pain as needed every 6 hours Follow up with primary within 5 days Return to ED if develop any new or worsening symptoms - Billing Disposition and Condition Condition: GOOD Disposition: Home
[2019-10-07 18:41] LABS: ABS Basophils 0.1 10^3/ul (0-0.2); ABS Eosinophils 0.1 10^3/ul (0-0.6); ABS Lymphocytes 2.7 10^3/ul (1.0-4.8); ABS Neutrophils 10.5 10^3/ul (1.5-7.7); Eosinophil % 0.4 %; Hematocrit 41 % (35-47); Hemoglobin 13.7 g/dL (12.0-16.0); Mean Corpuscular HGB Conc 34 g/dL (31-36); Mean Corpuscular Hemoglobin 32 pg (27-31); Mean Corpuscular Volume 94 fL (80-97); Platelet Count 255 10^3/uL (150-450); Red Blood Count 4.31 10^6 /uL (3.70-4.87); Red Cell Distribution Width 13 % (10-15); White Blood Count 14.3 10^3/uL (3.5-10.8)
[2019-10-07 19:00] LABS: ALT 15 U/L (7-52); AST 17 U/L (13-39); Albumin 3.8 g/dL (3.2-5.2); Albumin/Globulin Ratio 1.3 (1-3); Alkaline Phosphatase 21 U/L (34-104); Anion Gap 9 mmol/L (2-11); BUN/Creatinine Ratio 21.4 (8-20); Blood Urea Nitrogen 18 mg/dL (6-24); C Reactive Protein 5.73 mg/L (<8.01); CO2 Carbon Dioxide 23 mmol/L (22-32); Calcium 8.8 mg/dL (8.6-10.3); Chloride 104 mmol/L (101-111); EGFR Non-African American 80.2 (>60); Glucose 90 mg/dL (70-100); Sodium 136 mmol/L (135-145); Total Protein 6.8 g/dL (6.4-8.9)
[2019-10-07 19:01] LABS: HCG Pregnancy < 0.60 mIU/mL
[2019-10-07] MEDS ORDERED: HYDROcodone/ACETAMIN 5-325 MG* 1 TAB PO ONE (20:28)
[2019-10-07 20:41] VITALS: BP 146/92
== END 2019-10-07 20:41 | disposition home or self-care (01) ==
LOC: ED 16:18
DX: R10.32 Left lower quadrant pain (principal); R10.31 Right lower quadrant pain; R19.7 Diarrhea, unspecified; Z79.3 Long term (current) use of hormonal contraceptives
CPT/HCPCS: 36415; 76830; 80053; 83690; 84702; 85025; 86140; 96372; 99282; J1885

== ENCOUNTER 2019-11-06 10:08 | Emergency (ER) | payer BC ==
--- NOTE | 2019-11-06 10:41 | UC ---
Respiratory Complaint HPI - HPI Summary HPI Summary: 29 yo female presents with URI symptoms. She tells me that for the last 3 weeks she has had waxing and waning sinus pain/pressure/congestion, post nasal drip, sore throat, and dry cough. She reports she was at a concert 3 weeks ago and her illness started after this. She has not been taking anything OTC for her symptoms. She does not smoke. She denies fever, chills, SOB, chest pain, abdominal pain, n/v. No known COVID exposure. - History of Current Complaint Stated Complaint: COUGH HEAD CONGESTION Time Seen by Provider: 11/06/19 10:41 Hx Obtained From: Patient Hx Last Menstrual Period: 1 month ago Onset/Duration: Gradual Onset Severity Initially: Moderate Severity Currently: Moderate Pain Intensity: 6 Pain Scale Used: 0-10 Numeric Character: Cough: Nonproductive - Allergies/Home Medications Allergies/Adverse Reactions: Allergies Allergy/AdvReac Type Severity Reaction Status Date / Time No Known Allergies Allergy Verified 11/06/19 10:46 Home Medications: Home Medications Dextroamphetamine/Amphetamine [Adderall Xr 20 mg Capsule] 20 mg PO DAILY [History Confirmed 11/06/19] FLUoxetine CAP* [PROzac CAP*] 20 mg PO DAILY 10/07/19 [History Confirmed ] Ibuprofen [Advil] 400 mg PO Q6H PRN 10/07/19 [History Confirmed 11/06/19] Albuterol HFA INHALER* [Ventolin HFA Inhaler*] 1 puff INH Q6H PRN #1 mdi [Rx] Amoxicillin/Clavulanate TAB* [Augmentin TAB 875*] 875 mg PO BID #14 tab [Rx] Dm/PE/Acetaminophen/Doxylamine [Vicks Dayquil-Nyquil Cold-Flu] 1 tab PO ONCE PRN 11/06/19 [History Confirmed 11/06/19] PMH/Surg Hx/FS Hx/Imm Hx - Additional Past Medical History Additional PMH: ADHD - Surgical History Surgical History: None - Family History Known Family History: Positive: Hypertension Negative: Cardiac Disease, Diabetes - Social History Lives: With Family Alcohol Use: Occasionally Alcohol Amount: 2x weekly Substance Use Type: Marijuana Substance Use Comment - Amount & Last Used: weekly Smoking Status (MU): Never Smoked Tobacco - Immunization History Most Recent Influenza Vaccination: none Hx Tetanus, Diphtheria Vaccination: No - unsure when she had last vaccine Review of Systems All Other Systems Reviewed And Are Negative: No Constitutional: Positive: Negative Skin: Positive: Negative Eyes: Positive: Negative ENT: Positive: Sore Throat, Nasal Discharge, Sinus Congestion, Sinus Pain/ Tenderness Respiratory: Positive: Cough Cardiovascular: Positive: Negative Gastrointestinal: Positive: Negative Neurological/Mental Status: Positive: Negative Psychological: Positive: Negative Physical Exam - Summary Physical Exam Summary: GENERAL: NAD. WDWN. No pain distress. SKIN: No rashes, sores, lesions, or open wounds. HEENT: Head: AT/NC Eyes: Conjunctiva clear without inflammation or discharge. Ears: Hearing grossly normal. TMs intact, no bulging, erythema, or edema. Nose: Nasal mucosa pink and moist. NTTP maxillary and frontal sinus. Throat: Posterior oropharynx without exudates, erythema, or tonsillar enlargement. Uvula midline. NECK: Supple. Nontender. No lymphadenopathy. CHEST: Mild wheezing throughout. No r/r. No accessory muscle use. Breathing comfortably and in no distress. CV: RRR. Pulses intact. Cap refill <2seconds NEURO: Alert. PSYCH: Age appropriate behavior. Triage Information Reviewed: Yes Vital Signs: Vital Signs: Temp Pulse Resp BP Pulse Ox 97 F 94 18 137/87 100 11/06/19 10:42 11/06/19 10:42 11/06/19 10:42 11/06/19 10:42 11/06/19 10:42 Laboratory Tests 11/06/19 11/06/19 10:58 11:00 Influenza A (Rapid) Negative Influenza B (Rapid) Negative Group A Strep Rapid Negative Vital Signs Reviewed: Yes Diagnostics - Radiology CXR Radiology Interpretation Completed By: Radiologist Summary of Radiographic Findings: IMPRESSION: NO ACTIVE CARDIOPULMONARY DISEASE. Respiratory Course/Dx - Course Course Of Treatment: POC strep and flu negative. CXR negative. Suspect bronchitis, but given length of symptoms will treat at this time. - Differential Dx/Diagnosis Provider Diagnosis: Bronchitis Discharge ED - Sign-Out/Discharge Documenting (check all that apply): Patient Departure All imaging exams completed and their final reports reviewed: Yes - Discharge Plan Condition: Stable Disposition: HOME Prescriptions: Albuterol HFA INHALER* [Ventolin HFA Inhaler*] 1 puff INH Q6H PRN #1 mdi PRN Reason: Cough Amoxicillin/Clavulanate TAB* [Augmentin TAB 875*] 875 mg PO BID #14 tab Patient Education Materials: Acute Bronchitis (ED) Referrals: Raquel Bah MD [Primary Care Provider] - Additional Instructions: If you develop a fever, shortness of breath, chest pain, new or worsening symptoms - please call your PCP or go to the ED immediately. - Billing Disposition and Condition Condition: STABLE Disposition: Home
[2019-11-06 11:02] VITALS: BP 137/87
[2019-11-06 11:11] LABS: Influenza A Molecular Negative (Negative); Influenza B Molecular Negative (Negative)
== END 2019-11-06 11:40 | disposition home or self-care (01) ==
LOC: UCEAST 10:08
DX: J40 Bronchitis, not specified as acute or chronic (principal); F90.9 Attention-deficit hyperactivity disorder, unspecified type; Z79.899 Other long term (current) drug therapy
CPT/HCPCS: 71046; 87651; 99212; G0463

== ENCOUNTER 2022-08-22 21:42 | Inpatient (IN) ==
[2022-08-22] MEDS ORDERED: Lactated Ringers 1000 ml BAG 1,000 ML IV ONE (23:13)
[2022-08-22] MEDS ORDERED: Lidocaine 1% VIAL 10 MG/ML VIAL 30 ML ONE (23:38)
[2022-08-22] MEDS ORDERED: EPINEPHrine SULFITE FREE 1 MG/ML ONE (23:39)
[2022-08-22] MEDS ORDERED: OBEPIDURAL (200 ML) 200 ML EPIDURAL ONE (23:40)
[2022-08-22 23:43] LABS: Hematocrit 33 % (35-47); Hemoglobin 10.8 g/dL (12.0-16.0); Mean Corpuscular HGB Conc 32 g/dL (31-36); Mean Corpuscular Hemoglobin 27 pg (27-31); Mean Corpuscular Volume 83 fL (80-97); Mean Platelet Volume 9.4 fL (7.4-10.4); Platelet Count 319 10^3/uL (150-450); Red Blood Count 3.99 10^6 /uL (3.70-4.87); Red Cell Distribution Width 14 % (10-15); White Blood Count 23.4 10^3/uL (3.5-10.8)
[2022-08-22 23:58] LABS: Urine Appearance Cloudy; Urine Bilirubin Negative (Negative); Urine Blood Negative (Negative); Urine Color Yellow; Urine Glucose Negative (Negative); Urine Ketones Negative (Negative); Urine Nitrite Negative (Negative); Urine Protein 1+(30 mg/dL) (Negative); Urine Specific Gravity 1.026 (1.002-1.030); Urine Urobilinogen Negative (Negative)
[2022-08-23] LABS: Urine Bacteria 1+ (Absent); Urine Red Blood Cell Trace(0-2/hpf) (Absent); Urine Squamous Epithelial Cell Present (Absent); Urine White Blood Cell Trace(0-5/hpf) (Absent)
[2022-08-23 00:05] LABS: Urine Benzodiazepine Screen None Detected (None Detect); Urine Cannabinoids Screen None Detected (None Detect); Urine Opiates Screen None Detected (None Detect)
[2022-08-23 00:20] LABS: ABS Basophils 0.1 10^3/ul (0-0.2); ABS Eosinophils 0.1 10^3/ul (0-0.6); ABS Lymphocytes 3.8 10^3/ul (1.0-4.8); ABS Monocytes 2.1 10^3/ul (0-0.8); ABS Neutrophils 17.3 10^3/ul (1.5-7.7); Eosinophil % 0.4 %; Lymphocyte % 16.4 %
[2022-08-23] MEDS: Lactated Ringers 1000 ml BAG 1,000 ML IV SCH ×3 (00:20→04:50)
[2022-08-23 00:27] LABS: Albumin 3.3 g/dL (3.2-5.2); CO2 Carbon Dioxide 19 mmol/L (22-32); Calcium 8.9 mg/dL (8.6-10.3); Chloride 102 mmol/L (101-111); Sodium 132 mmol/L (135-145)
[2022-08-23] MEDS ORDERED: Lactated Ringers 1000 ml BAG 500 ML IV PRN ×2 (00:32)
[2022-08-23] MEDS ORDERED: Sodium Citrate/Citric Acid LIQ 15 ML UDC PO PRN (00:32)
[2022-08-23] MEDS ORDERED: Phenylephrine 40 mcg/mL 10mL (400mcg) SYRINGE IV PUSH PRN ×2 (00:32)
[2022-08-23] MEDS ORDERED: Lactated Ringers 1000 ml BAG 1,000 ML IV ONE (00:32)
[2022-08-23 00:33] LABS: ALT 12 U/L (7-52); Alkaline Phosphatase 137 U/L (35-149); Blood Urea Nitrogen 15 mg/dL (6-24); Creatinine, Serum 0.63 mg/dL (0.51-0.95); Globulin 3.2 g/dL (2-4); Glucose 81 mg/dL (70-100); Total Protein 6.5 g/dL (6.4-8.9); Uric Acid 6.1 mg/dL (2.3-6.6); eGFR CKD-EPI 120.8 (>60)
[2022-08-23 00:37] LABS: Anion Gap 11 mmol/L (2-11)
[2022-08-23] MEDS ORDERED: Oxytocin in LR 20,000 MILLI.UNIT/1,000 ML BAG IV SCH ×2 (01:00→08:00)
[2022-08-23] MEDS ORDERED: OBEPIDURAL (200 ML) 200 ML EPIDURAL SCH (01:00)
[2022-08-23] MEDS ORDERED: Lactated Ringers 1000 ml BAG 1,000 ML IV SCH ×2 (01:00→08:00)
[2022-08-23 01:11] LABS: Urine Appearance Clear; Urine Bilirubin Negative (Negative); Urine Blood 1+ (Negative); Urine Color Yellow; Urine Glucose Negative (Negative); Urine Ketones Trace (Negative); Urine Nitrite Negative (Negative); Urine Protein Negative (Negative); Urine Urobilinogen Negative (Negative)
[2022-08-23 01:19] LABS: Urine Bacteria Absent (Absent); Urine Red Blood Cell 3+(>10/hpf) (Absent); Urine Squamous Epithelial Cell Present (Absent); Urine White Blood Cell Trace(0-5/hpf) (Absent)
[2022-08-23 02:03] LABS: Potassium Redraw 4.2 mmol/L (3.5-5.0)
[2022-08-23] MEDS ORDERED: Ondansetron 4 mg VIAL 2 MG/ML 2 ml VIAL IV PRN (05:52)
[2022-08-23] MEDS ORDERED: Oxytocin in LR 20,000 MILLI.UNIT/1,000 ML BAG IV ONE (07:06)
[2022-08-23] MEDS: Dibucaine 1% OINT 28.35 GM TUBE PR PRN ×2 (08:28→16:00)
[2022-08-23] MEDS: Witch Hazel PAD JAR TOPICAL PRN (08:28)
[2022-08-24 07:03] LABS: ABS Basophils 0.1 10^3/ul (0-0.2); ABS Eosinophils 0.1 10^3/ul (0-0.6); ABS Lymphocytes 3.7 10^3/ul (1.0-4.8); ABS Monocytes 1.6 10^3/ul (0-0.8); ABS Neutrophils 14.9 10^3/ul (1.5-7.7); Eosinophil % 0.7 %; Hematocrit 20 % (35-47); Hemoglobin 6.4 g/dL (12.0-16.0); Mean Corpuscular HGB Conc 32 g/dL (31-36); Mean Corpuscular Hemoglobin 27 pg (27-31); Mean Corpuscular Volume 84 fL (80-97); Mean Platelet Volume 8.8 fL (7.4-10.4); Platelet Count 216 10^3/uL (150-450); Red Cell Distribution Width 14 % (10-15); White Blood Count 20.3 10^3/uL (3.5-10.8)
[2022-08-24] MEDS: Dibucaine 1% OINT 28.35 GM TUBE PR PRN (08:09)
[2022-08-24] MEDS: Witch Hazel PAD JAR TOPICAL PRN (08:09)
[2022-08-24] MEDS ORDERED: Tetan/Diph/Pertus SYR(Tdap) 0.5 ML SYR(BOOSTRIX) use SYR contains LATEX IM ONE (09:00)
[2022-08-24 15:20] VITALS: BP 118/79
== END 2022-08-24 15:23 | disposition home or self-care (01) | DRG 560 ==
LOC: MCHOBOUT 21:42 → MCHOB 22:36
PROVIDERS: ADMIT Midwife; ATTEND Midwife